=== PATIENT | male | born 1990 | race Caucasian/White ===

== ENCOUNTER 2020-01-01 10:25 | Emergency (ER) | payer OTHER, SELFPAY ==
[2020-01-01 10:37] VITALS: BP 136/63; PULSE 55; RESP 16; TEMP 36.5; O2SAT 99
--- NOTE | 2020-01-01 10:46 | ED.URI ---
HPI - URI/Sore Throat General Chief Complaint: Upper Respiratory Infection Stated Complaint: dry cough fever weak Time Seen by Provider: 01/01/20 10:46 Source: patient and RN notes reviewed History of Present Illness HPI Narrative: Patient is a 29-year-old male that presents the urgent care with complaints of dry cough, fever, fatigue, wheezing. Patient states that it started Wednesday and he is also had a little bit of nausea. Also reports of a slight sore throat due to the dry cough. States that he has been using Robitussin, NyQuil, ibuprofen [id number]. Denies any recent travel or high risk area of coronavirus. No other acute complaints. No acute distress noted. Patient read the plan of care. Related Data Home Medications Medication Instructions Recorded Confirmed amlodipine 10 mg PO DAILY 01/01/20 01/01/20 metoprolol tartrate 50 mg PO Q12H 01/01/20 01/01/20 Allergies Allergy/AdvReac Type Severity Reaction Status Date / Time No Known Allergies Allergy Verified 01/01/20 10:57 Review of Systems Review of Systems: Narrative: CONSTITUTIONAL: Reports a fever and fatigue EYES: Denies visual changes, redness, or discharge. ENT: Reports of postnasal drainage and sore throat CARDIOVASCULAR: Denies chest pain, palpitations, or edema. RESPIRATORY: Reports of dry cough with slight wheezing when lying down, without dyspnea GASTROINTESTINAL: Denies abdominal pain, nausea, vomiting, or diarrhea. GENITOURINARY: Denies dysuria or hematuria. SKIN: Denies rash or itching. MUSCULOSKELETAL: Denies back pain, joint pain, or myalgia. NEUROLOGIC: Denies headache, numbness, or weakness. All other systems reviewed are negative, except as documented in HPI. PMFSH Comments At the time of my signature, I reviewed and agree with the nursing past medical, surgical, social, and family history. There is no relevant family history pertinent to the patient complaint. Exam Narrative: Exam Narrative: GENERAL: This is a well-nourished, well-developed patient, in no apparent distress. HEAD: normocephalic, atraumatic. EYES: PERRL. Sclera clear/white. Vision is grossly intact. EARS: External ears normal, auditory canals clear and without drainage, TMs normal without perforation. Hearing grossly intact. NOSE: External nose normal with no obvious nasal discharge, nares without redness, no rhinorrhea. THROAT: Mucous membranes moist, moderate erythema noted posterior oropharynx with moderate postnasal drainage. NECK: Neck supple, non-tender without lymphadenopathy CARDIOVASCULAR: Regular rate and rhythm without murmurs, gallops, or rubs. RESPIRATORY: Clear to auscultation. Breath sounds equal bilaterally. No wheezes, rales, or rhonchi. SKIN: warm, intact with no suspicious lesions or rash, good texture and turgor. NEURO: awake, alert, and oriented to person, place and time. There were no obvious focal neurologic abnormalities. EXTREMITIES: No clubbing, cyanosis, or edema. Course Vital Signs Vital signs: Vital Signs Temperature 97.7 F 01/01/20 10:37 Pulse Rate 55 L 01/01/20 10:37 Respiratory Rate 16 01/01/20 10:37 Blood Pressure 136/63 01/01/20 10:37 Pulse Oximetry 99 01/01/20 10:37 Temperature 97.7 F 01/01/20 10:37 Pulse Rate 55 L 01/01/20 10:37 Respiratory Rate 16 01/01/20 10:37 Blood Pressure 136/63 01/01/20 10:37 Pulse Oximetry 99 01/01/20 10:37 Reviewed MDM - URI/Sore Throat MDM Narrative Medical decision making narrative: Reviewed lab results with the patient. He is aware that strep swab was negative. Educated him on culture and we will call within 72 hours if culture is positive and antibiotics are necessary. Advised the patient to use Tylenol/ibuprofen as needed for fever or body aches. Use Claritin and Flonase [id number] as directed. Use humidifier at night. Increase fluids and rest. Follow-up with PCP within 2 to 5 days or for worsening symptoms or failure to improve. Differential Diagnos
== END 2020-01-01 11:00 | disposition home or self-care (01) ==
PROVIDERS: Emergency Provider Nurse Practitioner Family
DX: J06.9 Acute upper respiratory infection, unspecified (principal); I10 Essential (primary) hypertension
CPT/HCPCS: 87081; 87880; 99203; G0463

== ENCOUNTER 2023-10-22 08:32 | Emergency (ER) | payer OTHER, MEDICAID, SELFPAY ==
[2023-10-22 08:40] VITALS: BP 130/83; PULSE 73; RESP 16; TEMP 37.1; O2SAT 99
--- NOTE | 2023-10-22 09:39 | ED.EAR ---
HPI - Ear Problem General Chief complaint: Ear Stated complaint: right ear Time Seen by Provider: 10/22/23 09:30 Source: patient, RN notes reviewed and old records reviewed Mode of arrival: ambulatory Limitations: no limitations History of Present Illness HPI Narrative: 33-year-old male who presents to [facility] with complaints of right ear pain which continues to throb despite being placed on oral antibiotic and steroids on Wednesday at ER visit. Patient reports that he was tested for strep,Covid and RSV at the ED with all tests negative. patient reports that he has been taking Ibuprofen for his pain. Patient has not taken any OTC decongestants or any antihistamines.Patient reports that he continues to have some nasal congestion and drainage and some irritation to his throat. MD Complaint: ear pain Location: right ear Duration: constant Severity: moderate Discharge from ear: Reports no Treatment prior to arrival: other (antibiotic and steroids) Related Data Home Medications Medication Instructions Recorded Confirmed amlodipine 10 mg tablet 10 mg PO DAILY 01/01/20 01/01/20 metoprolol tartrate 50 mg tablet 50 mg PO Q12H 01/01/20 01/01/20 penicillin V potassium 500 mg mg 10/22/23 tablet prednisone 50 mg tablet mg 10/22/23 Allergies Allergy/AdvReac Type Severity Reaction Status Date / Time No Known Allergies Allergy Verified 01/01/20 10:57 Review of Systems Review of Systems: CONSTITUTIONAL: Denies malaise, chills, sweats, or fever. EYES: Denies visual changes, redness, or discharge. ENT: Reports rhinorrhea, congestion, no sinus pain, right otalgia and positive for sore throat. CARDIOVASCULAR: Denies chest pain, palpitations, or edema. RESPIRATORY: Reports dry cough.? Denies dyspnea. GASTROINTESTINAL: Denies abdominal pain, nausea, vomiting, diarrhea SKIN: Denies rash or itching. MUSCULOSKELETAL: Denies myalgia. NEUROLOGIC: Denies headache. All systems reviewed & are unremarkable except as noted in HPI and below PMFSH Past Medical History Medical History (Updated 10/22/23 @ 09:58 by Nelly Beckford NP) Hypertension Surgical History Surgical History (Updated 10/22/23 @ 09:53 by Nelly Beckford NP) No history of previous surgery Social History Social History (Updated 10/22/23 @ 09:54 by Nelly Beckford NP) Smoking status: Never smoker Alcohol intake: never Substance use: never Gender identity (if verbalized by the patient): Male Comments At time of signature, agree with nursing past medical, surgical, social and family history. There is no relevant family history pertinent to the presenting complaint Exam Narrative: GENERAL: Well-appearing, well-nourished,obese, and in no acute distress. HEAD: Normocephalic EYES: PERRLA, conjunctivae clear ENT: Nares clear, turbinates edematous and erythematous, clear discharge. Mucous membranes moist. Right TM red and bulging with irritation of ear canal no drainage, Left TM pearly carvajal with dull light reflex bilaterally;right tragal tenderness. Oropharynx erythematous without lesions. Tonsils red enlarged and without exudate, no drooling, no hoarseness, no trismus, uvula midline.post nasal drainage NECK: Supple. No lymphadenopathy CHEST: Clear to auscultation, breath sounds equal. No wheezing, rhonchi, rales, or stridor. No respiratory distress, speaks in full sentences.occasional dry cough SAO2 99% on room air HEART: Regular rate and rhythm. No murmur heard. SKIN: Warm, dry, no rash. NEURO: Alert and oriented x3. PSYCH: Normal mood and affect Course Course Emergency Course: Patient is aware of diagnosis, understands and agrees to treatment plan.? Anticipatory guidance given.? Patient agrees to follow-up as directed and is aware of reasons to seek care at the emergency department. Portions of this record may have been created with voice recognition software Level of Care: [facility] Visit Vital
== END 2023-10-22 10:04 | disposition home or self-care (01) ==
PROVIDERS: Emergency Provider Registered Nurse; PCP Internal Medicine
DX: H60.501 Unspecified acute noninfective otitis externa, right ear (principal); I10 Essential (primary) hypertension; Z79.899 Other long term (current) drug therapy
CPT/HCPCS: 99203; G0463

== ENCOUNTER 2024-04-11 01:49 | Day surgery (SDC) | payer OTHER, SELFPAY ==
[2024-04-04 15:17] VITALS: BMI 46.3
--- NOTE | 2024-04-04 15:36 | PC.NURSE ---
Report to the Outpatient Waiting Room, entrance under the green pavilion located off [facility], at time _0945 AM on date _04/11/24 . Planned Procedure Time: __1145AM . Time changes happen often and if your time is changed the preop area will call you the afternoon before. - You and your visitor will be asked to self-screen and do not enter if you have any COVID symptoms. - A mask is optional within the hospital at this time. Patients may have clear liquids (water, carbonated beverages, clear teas, apple juice) until 3 hours prior to surgery (8:45AM) with a maximum of 20 ounces. - No food from midnight until time of surgery Take the following medications with a SIP of water the morning of surgery: ___AMLODIPINE AND METOPROLOL DO NOT STOP ANY OF YOUR OTHER PRESCRIPTION MEDICATIONS PRIOR TO SURGERY ?EXCEPT THE FOLLOWING Medications to discontinue per physician N/A Date to take last dose___N/A Please no make-up, nail czech, hairspray, perfume, deodorant, or body powder the day of surgery. No jewelry (including any body piercings) or valuables the day of surgery, leave them at home. Please take a shower or bath the night before, or the morning of, surgery with an antibacterial soap. Wear comfortable, loose fitting clothing. - Jewelry must be removed prior to entering the operating room. Rings and piercings that are not removed may be cut off. - The hospital will not accept responsibility for valuables. - Please leave all valuables, including medications, at home the day of surgery. If you are going home after surgery, a licensed driver recruiter must drive you home. - NO public transportation without another adult if you receive anesthesia. - We recommend that an adult stay with you for 24 hours following discharge. - We also recommend that you do not drive, make important decision, drink alcoholic beverages, or take any drugs that were not prescribed by your health care provider for at least 24 hours after your discharge time. Follow any additional instructions given to you from your surgeon. If you or anyone in your household have experienced Covid symptoms in the past week, please notify your surgeon or the nurse liaison at the phone number below for possible testing. Telephone instructions given to ___KYLE and asked if any additional questions and then verbalized understanding. Patient advised to call surgeon office or pre surgery nurse liaison [phone] if any additional questions.
--- NOTE | 2024-04-10 17:34 | PM.IMHP ---
H&P: HPI History of Present Illness Date/Time: 04/10/24 17:34 Chief Complaint: snoring adenoid hypertrophy chronic tonsillitis recurrent tonsillitis sleep disordered breathing tonsillar hypertrophy Narrative: planned procedure Review of Systems Review of Systems: All systems reviewed & are unremarkable except as noted in HPI and below [facility] Past Medical History Medical History (Updated 02/23/24 @ 09:02 by Sulaiman Garcia MD) Arthritis Hypertension Surgical History Surgical History (Updated 10/22/23 @ 09:53 by Nelly Beckford NP) No history of previous surgery Family History Family History (Updated 02/23/24 @ 08:34 by Paty De Jesus) Father Diabetes mellitus Mother Diabetes mellitus Heart disease Hypertension Social History Social History (Updated 02/23/24 @ 08:36 by Paty De Jesus) Social History: Caffeine-none Smoking packs per day: 0.25 Smoking cigarettes per day: 5.0 Years smoked: 15 Smoking pack-years: 3.75 Smoking status: Former smoker Tobacco type: cigarettes Smoking end date: 10/18/22 Alcohol intake: never Substance use: never Substance use type: does not use Do You Feel Safe in your Home?: Yes Lack of Transportation: No Lack of Food: Never True Current Housing: I Have Housing Concerned About Future Housing: No Difficulty Paying Gas/Electric Bills: No Difficulty Paying for Meds: No Currently Unemployed: No Education: High School Diploma/GED Difficulty w/ Childcare or Family Care: No Living arrangements: with family Occupation/Education: occupation 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 Gender identity (if verbalized by the patient): Male Spiritual care concerns: No Agree to blood products: Yes Meds Home Medications and Allergies Home Medications Medication Instructions Recorded Confirmed Type amlodipine 10 mg tablet 10 mg PO DAILY 01/01/20 04/04/24 History metoprolol tartrate 50 mg tablet 50 mg PO Q12H 01/01/20 04/04/24 History Allergies Allergy/AdvReac Type Severity Reaction Status Date / Time No Known Allergies Allergy Verified 04/04/24 15:40 Exam Narrative: large tonsils large adenoids Assessment and Plan Assessment and plan (1) Recurrent tonsillitis: Code(s): J03.91 - Acute recurrent tonsillitis, unspecified Status: Acute Assessment and Plan: Plan or tonsillectomy adenoidectomy risks discussed bleeding infection damage to surrounding structures change in taste or swallow which could be permanent need for further procedures postoperative bleeding 3-5% chance. Need for time off work time off school inherent risk of narcotic use. Failure to resolve symptoms if not due to tonsils and/or adenoids. Damage to any structure of the clavicle by myself damage to any structure in the induction and maintenance of anesthesia Including vocal cord paralysis. Patient voiced understanding of these risks and agreed (2) Adenoid hypertrophy: Code(s): J35.2 - Hypertrophy of adenoids Status: Acute (3) Snoring: Code(s): R06.83 - Snoring Status: Acute (4) Sleep-disordered breathing: Code(s): G47.30 - Sleep apnea, unspecified Status: Acute
[2024-04-11] VITALS (16 sets, daily range): BP systolic 111–147; BP diastolic 49–92; PULSE 58–78; RESP 8–16; TEMP 36.1–36.3; O2SAT 92–100
--- NOTE | 2024-04-11 06:56 | ECG_ITS ---
Test Date: 2024-04-11 07:27:00 Measurements Intervals [place] Rate: 68 P: 18 NM: 183 QRS: 7 QRSD: 96 T: 24 QT: 360 QTc: 384 Interpretive Statements SINUS RHYTHM No previous ECG available for comparison Electronically Signed On 04-11-2024 13:35:44 CDT by James Zhao M.D.
--- NOTE | 2024-04-11 07:18 | WPDHPUPDATE1 ---
History and Physical Update Update Date/Time: 04/11/24 07:18 History and Physical has been reviewed, including an updated exam of the patient. There are NO changes in the patient's condition. Risks, benefits, and alternatives have been discussed and questions answered. Patient agrees to proceed with procedure.
[2024-04-11] MEDS: LACTATED RINGERS 1,000 ML 30 ML IV CONT ×2 (07:35→10:02)
[2024-04-11] MEDS: ACETAMINOPHEN 500 MG TABLET 1000 MG PO (07:35)
--- NOTE | 2024-04-11 07:35 | P.PNAN_ITS ---
Anes - Initial Pre Proc Eval Procedure: Operation Date: 04/11/24 08:45 Proposed Procedures p Tonsillectomy And Adenoidectomy - Sulaiman Garcia MD Date/Time: 04/11/24 07:35 Surgeon: Sulaiman Garcia MD Pre Op Diagnosis: recurrent tonsillitis, adenoid hypertrophy Patient Data Age: 33 Gender: M Height: 1.93 m Weight: 172.5 kg Allergies Allergy/AdvReac Type Severity Reaction Status Date / Time No Known Allergies Allergy Verified 04/04/24 15:40 Home Medications Medication Instructions Recorded Confirmed Type amlodipine 10 mg tablet 10 mg PO DAILY 01/01/20 04/04/24 History metoprolol tartrate 50 mg tablet 50 mg PO Q12H 01/01/20 04/04/24 History Patient hx anesthesia problems: none Family hx anesthesia problems: none Results Review: All pre-operative results and documents have been reviewed as part of the pre- operative evaluation. [facility] Past Medical History Medical History (Updated 02/23/24 @ 09:02 by Sulaiman Garcia MD) Arthritis Hypertension Surgical History Surgical History No history of previous surgery Family History Family History Father Diabetes mellitus Mother Diabetes mellitus Heart disease Hypertension Social History Social History Social History: Caffeine-none Smoking packs per day: 0.25 Smoking cigarettes per day: 5.0 Years smoked: 15 Smoking pack-years: 3.75 Smoking status: Former smoker Tobacco type: cigarettes Smoking end date: 10/18/22 Alcohol intake: never Substance use: never Substance use type: does not use Do You Feel Safe in your Home?: Yes Lack of Transportation: No Lack of Food: Never True Current Housing: I Have Housing Concerned About Future Housing: No Difficulty Paying Gas/Electric Bills: No Difficulty Paying for Meds: No Currently Unemployed: No Education: High School Diploma/GED Difficulty w/ Childcare or Family Care: No Living arrangements: with family Occupation/Education: occupation 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 Gender identity (if verbalized by the patient): Male Spiritual care concerns: No Agree to blood products: Yes Anes - Eval Final PreProcedure Day of Procedure 04/11/24 07:35 Patient weight: morbidly obese Heart: regular rate and rhythm Lungs: clear to auscultation Airway: Mallampati scale class III and special considerations poor opening Neurological: alert and oriented Last oral intake: >/= 8 hours ASA classification: III Emergent: no Anesthetic plan: proceed Anesthesia type and monitoring: general ETT and standard monitoring Results Review: All pre-operative results and documents have been reviewed as part of the pre- operative evaluation. Informed Consent: The patient's anesthetic plan and its attendant risks and benefits were discussed with the patient/family/POA. Questions were solicited and answers provided to the satisfaction of the patient/family/POA.
--- NOTE | 2024-04-11 10:15 | P.OP_ITS ---
Procedure Note - Detailed Date of Procedure 04/11/24 Pre-op Diagnosis recurrent tonsillitis, adenoid hypertrophy Post-op Diagnosis Same Procedure Performed Tonsillectomy adenoidectomy Surgeon Sulaiman Garcia MD Anesthesia General Indications see above Findings incredibly large vascularized tonsils adenoids overall not big but they did there were fronds about 2 to 3+ right at the posterior cord Description of Procedure patient identified consent verified preop. Patient brought operating. Time- out performed. General anesthesia induced endotracheal tube secured. Patient prepped draped position procedure confirmed 2nd time-out performed. Tonsils viewed incredibly large. They were removed bilaterally in the extracapsular plane using Bovie electrocautery at a setting of 8 and 10. Any bleeding was controlled with bipolar electric electrocautery setting of 05/27/2012 and 15 and suction Bovie electrocautery at a setting of 10 12 in 15. The tonsil bed the muscular layer was incredibly vascular. Special on the left side there is a large vessel that took me about 10-15 minutes to completely controlled. In- between tonsils McIvor mouth gag was lowered reopened allow blood flow return to the tongue. After the tonsils were out the McIvor mouth gag was lowered for 30 seconds reopened reveal no further bleeding. Red rubber catheters were then placed transnasally suspending the soft palate anteriorly. Adenoid pad viewed with a mirror it was overall small/ nonexistent however at the posterior choana there were large fronds 2 to 3+ these removed no bleeding. No damage to nikole septum or palate. McIvor mouth gag and red rubber catheters removed. Overall the patient tolerated the procedure very well blood loss high for tonsillectomy about 15 cc. No immediate complications. Care the patient given Anesthesiology. I performed all dictated portions of the procedure. Of note tonsillar asymmetry was noted in clinic, however the tonsils appeared to be symmetric once they work sized. Estimated Blood Loss 15 Drains No Packing No Pathology Yes Complications No immediate complications Condition Stable Disposition PACU [facility] Billing Surgery - Charge Forward: Surgery Billing
[2024-04-11] MEDS: fentaNYL CITRATE INJ (*CRX) 100 MCG/2 ML VIAL 25 MCG IV PUSH ×2 (10:44→10:47)
[2024-04-11] MEDS: ONDANSETRON INJ 4 MG/2 ML VIAL IV PUSH (11:22)
[2024-04-11] MEDS: oxyCODONE HCL (*CRX) 5 MG TAB IR PO (13:12)
== END 2024-04-11 14:45 | disposition home or self-care (01) ==
PROVIDERS: PCP Internal Medicine; Visit Provider Otolaryngology
PROC: (CPT 42821; principal; 2024-04-11 08:45)
DX: J03.91 Acute recurrent tonsillitis, unspecified (principal); J35.2 Hypertrophy of adenoids; R06.83 Snoring; G47.30 Sleep apnea, unspecified; Z87.891 Personal history of nicotine dependence; I10 Essential (primary) hypertension
CPT/HCPCS: 42821; 88304; 93005; A9270; J0330; J1100; J2250; J2405; J2704; J3010; J7120

== ENCOUNTER 2024-04-19 00:11 | Day surgery (SDC) | payer SELFPAY ==
[2024-04-19] VITALS (9 sets, daily range): BP systolic 113–132; BP diastolic 70–101; PULSE 84–123; RESP 12–18; TEMP 36.3–36.7; O2SAT 94–100
--- NOTE | 2024-04-19 00:33 | ED.DENTAL ---
HPI - Dental/Oral General Chief complaint: Dental/Oral Stated complaint: tonsil bleeding post tonsilectomy Time Seen by Provider: 04/19/24 00:14 Source: patient Mode of arrival: ambulatory Limitations: no limitations History of Present Illness HPI Narrative: This is a 33 year old male that presents to the ER for post-tonsillectomy bleeding. Patient is about 1 week post-op from T&A with Dr. Garcia. Reports he woke up tonight with a mouth full of blood. Related Data Home Medications Medication Instructions Recorded Confirmed amlodipine 10 mg tablet 10 mg PO DAILY 01/01/20 04/11/24 metoprolol tartrate 50 mg tablet 50 mg PO Q12H 01/01/20 04/11/24 Allergies Allergy/AdvReac Type Severity Reaction Status Date / Time No Known Allergies Allergy Verified 04/19/24 00:22 Review of Systems Review of Systems: CONSTITUTIONAL: Denies fever ENT: Reports sore throat All systems reviewed & are unremarkable except as noted in HPI and below PMFSH Past Medical History Medical History (Updated 04/19/24 @ 00:36 by Coral Burr PA-C) Arthritis Hypertension Surgical History Surgical History No history of previous surgery Family History Family History Father Diabetes mellitus Mother Diabetes mellitus Heart disease Hypertension Social History Social History Social History: Caffeine-none Smoking packs per day: 0.25 Smoking cigarettes per day: 5.0 Years smoked: 15 Smoking pack-years: 3.75 Smoking status: Former smoker Tobacco type: cigarettes Smoking end date: 10/18/22 Alcohol intake: never Substance use: never Substance use type: does not use Do You Feel Safe in your Home?: Yes Lack of Transportation: No Lack of Food: Never True Current Housing: I Have Housing Concerned About Future Housing: No Difficulty Paying Gas/Electric Bills: No Difficulty Paying for Meds: No Currently Unemployed: No Education: High School Diploma/GED Difficulty w/ Childcare or Family Care: No Living arrangements: with family Occupation/Education: occupation 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 HEAD: Normocephalic, atraumatic. EYES: EOMI. ENT: Nares clear, no rhinorrhea or epistaxis. Mucous membranes moist. Oropharynx with large clot on the right tonsil bed CHEST: No respiratory distress. HEART: Regular rate EXTREMITIES: Normal range of motion. No edema. SKIN: Warm, dry, no rash. NEURO: No focal deficits. Alert and oriented x3. PSYCH: Normal mood and affect Course Course Emergency Course: Dr. Garcia at bedside. Patient will be taken to OR for further management Vital Signs Vital signs: Vital Signs Temperature 98.1 F 04/19/24 00:14 Pulse Rate 123 H 04/19/24 00:14 Respiratory Rate 18 04/19/24 00:14 Blood Pressure 132/91 H 04/19/24 00:14 Pulse Oximetry 96 04/19/24 00:14 Oxygen Delivery Room Air 04/19/24 00:14 Temperature 98.1 F 04/19/24 00:14 Pulse Rate 123 H 04/19/24 00:14 Respiratory Rate 18 04/19/24 00:14 Blood Pressure 132/91 H 04/19/24 00:14 Pulse Oximetry 96 04/19/24 00:14 Oxygen Delivery Room Air 04/19/24 00:14 MDM - Dental/Oral MDM Narrative Medical decision making narrative: Patient presents to the ER for post-tonsillectomy bleeding. One week post op from T&A with Dr. Garcia. Dr. Garcia at bedside currently. Patient will be taken to OR for further management Differential Diagnosis Differential diagnosis: Likely other (post-tonsillectomy bleeding) Critical Care Time Critical Care Time Critical Care Time: No Discharge Plan Di
--- NOTE | 2024-04-19 00:41 | P.CONS_ITS ---
Assessment and Plan Assessment and plan (1) Post-tonsillectomy hemorrhage: Code(s): J95.830 - Postprocedural hemorrhage of a respiratory system organ or structure following a respiratory system procedure Status: Acute Assessment and Plan: plan OR control of post tonsillectomy hemorrhage. Risks discussed bleeding infection damage trach suctioning for the procedure prolonged pain all the exact same risks discussed during previous tonsillectomy. HPI Data of Consult Date/Time: 04/19/24 00:41 Primary Care Provider: Claudy Sanchez, Consult Narrative Narrative: Fili Varner is a 33 year old male Status post T&A 7 days ago bleeding Review of Systems Review of Systems: All systems reviewed & are unremarkable except as noted in HPI and below PMFSH Past Medical History Medical History (Updated 04/19/24 @ 00:36 by Coral Burr PA-C) Arthritis Hypertension Surgical History Surgical History No history of previous surgery Family History Family History Father Diabetes mellitus Mother Diabetes mellitus Heart disease Hypertension Social History Social History Social History: Caffeine-none Smoking packs per day: 0.25 Smoking cigarettes per day: 5.0 Years smoked: 15 Smoking pack-years: 3.75 Smoking status: Former smoker Tobacco type: cigarettes Smoking end date: 10/18/22 Alcohol intake: never Substance use: never Substance use type: does not use Do You Feel Safe in your Home?: Yes Lack of Transportation: No Lack of Food: Never True Current Housing: I Have Housing Concerned About Future Housing: No Difficulty Paying Gas/Electric Bills: No Difficulty Paying for Meds: No Currently Unemployed: No Education: High School Diploma/GED Difficulty w/ Childcare or Family Care: No Living arrangements: with family Occupation/Education: occupation 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 Gender identity (if verbalized by the patient): Male Spiritual care concerns: No Agree to blood products: Yes Meds Home Medications and Allergies Home Medications Medication Instructions Recorded Confirmed Type amlodipine 10 mg tablet 10 mg PO DAILY 01/01/20 04/11/24 History metoprolol tartrate 50 mg tablet 50 mg PO Q12H 01/01/20 04/11/24 History oxycodone 5 mg tablet 5 mg PO .q6-q8h PRN pain #30 tabs 04/11/24 Rx Allergies Allergy/AdvReac Type Severity Reaction Status Date / Time No Known Allergies Allergy Verified 04/19/24 00:22 Vital Signs Vital Signs - 24 hr 04/19/24 00:14 Temperature 36.7 C Pulse Rate 123 H Respiratory Rate 18 Blood Pressure 132/91 H Pulse Oximetry 96 Oxygen Delivery Room Air Exam Narrative: right clot bleeding when suctioned out
--- NOTE | 2024-04-19 00:44 | P.HP_ITS ---
H&P: HPI History of Present Illness Date/Time: 04/19/24 00:44 Chief Complaint: Post tonsillectomy hemorrhage Narrative: urgent procedure Review of Systems Review of Systems: All systems reviewed & are unremarkable except as noted in HPI and below [facility] Past Medical History Medical History (Updated 04/19/24 @ 00:36 by Coral Burr PA-C) Arthritis Hypertension Surgical History Surgical History No history of previous surgery Family History Family History Father Diabetes mellitus Mother Diabetes mellitus Heart disease Hypertension Social History Social History Social History: Caffeine-none Smoking packs per day: 0.25 Smoking cigarettes per day: 5.0 Years smoked: 15 Smoking pack-years: 3.75 Smoking status: Former smoker Tobacco type: cigarettes Smoking end date: 10/18/22 Alcohol intake: never Substance use: never Substance use type: does not use Do You Feel Safe in your Home?: Yes Lack of Transportation: No Lack of Food: Never True Current Housing: I Have Housing Concerned About Future Housing: No Difficulty Paying Gas/Electric Bills: No Difficulty Paying for Meds: No Currently Unemployed: No Education: High School Diploma/GED Difficulty w/ Childcare or Family Care: No Living arrangements: with family Occupation/Education: occupation 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 Gender identity (if verbalized by the patient): Male Spiritual care concerns: No Agree to blood products: Yes Meds Home Medications and Allergies Home Medications Medication Instructions Recorded Confirmed Type amlodipine 10 mg tablet 10 mg PO DAILY 01/01/20 04/11/24 History metoprolol tartrate 50 mg tablet 50 mg PO Q12H 01/01/20 04/11/24 History oxycodone 5 mg tablet 5 mg PO .q6-q8h PRN pain #30 tabs 04/11/24 Rx Allergies Allergy/AdvReac Type Severity Reaction Status Date / Time No Known Allergies Allergy Verified 04/19/24 00:22 Vital Signs Vital Signs - 24 hr 04/19/24 00:14 Temperature 36.7 C Pulse Rate 123 H Respiratory Rate 18 Blood Pressure 132/91 H Pulse Oximetry 96 Oxygen Delivery Room Air Exam Narrative: right clot with bleeding Assessment and Plan Assessment and plan (1) Post-tonsillectomy hemorrhage: Code(s): J95.830 - Postprocedural hemorrhage of a respiratory system organ or structure following a respiratory system procedure Status: Acute Plan see consult plan OR
[2024-04-19 01:03] LABS: Basophils Absolute Auto 0.1 K/mm3 (0.0-0.1); Basophils Percent Auto 0.5 % (0.2-1.2); Eosinophils Absolute Auto 0.1 K/mm3 (0-0.3); Eosinophils Percent Auto 1.1 % (0-4.4); Hemoglobin 14.7 g/dL (14.0-18.0); Immature Granulocyte Absolute 0.01 K/mm3 (0.00-0.031); Immature Granulocyte Percent A 0.1 % (0-0.5); Lymphocytes Absolute Auto 3.01 K/mm3 (0.9-3.2); Mean Corpuscular HGB Conc 34.2 g/dl (32-36); Mean Corpuscular Hemoglobin 28.7 pg (26-34); Mean Corpuscular Volume 83.8 fl (80-100); Mean Platelet Volume 10.3 fl (7.4-10.4); Monocytes Absolute Auto 0.9 K/mm3 (0.1-0.6); Monocytes Percent Auto 10.3 % (2.6-8.5); Platelet Count Result 274 k/mm3 (150-375); Red Blood Count 5.13 M/mm3 (4.6-6.20); Red Cell Distribution Width 12.8 % (11.5-14.5); White Blood Count 9.1 K/mm3 (4.5-10.0)
--- NOTE | 2024-04-19 01:35 | WPDANESEPP ---
Anes - Eval Pre Procedure Procedure: Operation Date: 04/19/24 01:30 Proposed Procedures p Post Op Tonsil Bleed - Sulaiman Garcia MD Date/Time: 04/19/24 01:35 Surgeon: caren Preop Diagnosis: post tonsillar hemorrhage Pre Op Diagnosis: tonsil bleeding post tonsilectomy Patient Data Age: 33 Gender: M Height: 1.93 m Weight: 172 kg Last Vital Signs Temp 36.7 C 04/19/24 00:14 Pulse 123 H 04/19/24 00:14 Resp 18 04/19/24 00:14 BP 132/91 H 04/19/24 00:14 Pulse Ox 96 04/19/24 00:14 O2 Del Method Room Air 04/19/24 00:14 Allergies Allergy/AdvReac Type Severity Reaction Status Date / Time No Known Allergies Allergy Verified 04/19/24 00:22 Home Medications Medication Instructions Recorded Confirmed Type amlodipine 10 mg tablet 10 mg PO DAILY 01/01/20 04/11/24 History metoprolol tartrate 50 mg tablet 50 mg PO Q12H 01/01/20 04/11/24 History oxycodone 5 mg tablet 5 mg PO .q6-q8h PRN pain #30 tabs 04/11/24 Rx Laboratory Tests 04/19/24 00:58 WBC 9.1 K/mm3 (4.5-10.0) RBC 5.13 M/mm3 (4.6-6.20) Hgb 14.7 g/dL (14.0-18.0) Hct 43.0 % (42.0-52.0) MCV 83.8 fl (80-100) MCH 28.7 pg (26-34) MCHC 34.2 g/dl (32-36) RDW 12.8 % (11.5-14.5) Plt Count 274 k/mm3 (150-375) MPV 10.3 fl (7.4-10.4) Immature Gran % (Auto) 0.1 % (0-0.5) Neut % (Auto) 55.0 % (45.5-73.1) Lymph % (Auto) 33.0 % (18.3-44.2) [place] % (Auto) 10.3 H % (2.6-8.5) Eos % (Auto) 1.1 % (0-4.4) Baso % (Auto) 0.5 % (0.2-1.2) Lymph # (Auto) 3.01 K/mm3 (0.9-3.2) [place] # (Auto) 0.9 H K/mm3 (0.1-0.6) Eos # (Auto) 0.1 K/mm3 (0-0.3) Baso # (Auto) 0.1 K/mm3 (0.0-0.1) Abs Immat Gran (auto) 0.01 K/mm3 (0.00-0.031) Absolute Neuts (auto) 5.0 K/mm3 (1.3-6.7) Absolute Nucleated RBC 0.000 K/mm3 (0.0-0.012) Nucleated RBC % 0.0 % (0.0-0.2) Patient hx anesthesia problems: none Family hx anesthesia problems: none Results Review: All pre-operative results and documents have been reviewed as part of the pre-operative evaluation. [facility] Past Medical History Medical History (Updated 04/19/24 @ 00:36 by Coral Burr PA-C) Arthritis Hypertension Surgical History Surgical History No history of previous surgery Family History Family History Father Diabetes mellitus Mother Diabetes mellitus Heart disease Hypertension Social History Social History Social History: Caffeine-none Smoking packs per day: 0.25 Smoking cigarettes per day: 5.0 Years smoked: 15 Smoking pack-years: 3.75 Smoking status: Former smoker Tobacco type: cigarettes Smoking end date: 10/18/22 Alcohol intake: never Substance use: never Substance use type: does not use Do You Feel Safe in your Home?: Yes Lack of Transportation: No Lack of Food: Never True Current Housing: I Have Housing Concerned About Future Housing: No Difficulty Paying Gas/Electric Bills: No Difficulty Paying for Meds: No Currently Unemployed: No Education: High School Diploma/GED Difficulty w/ Childcare or Family Care: No Living arrangements: with family Occupation/Education: occupation 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
--- NOTE | 2024-04-19 01:41 | WPDANESEPPF ---
Anes - Initial Pre Proc Eval Procedure: Operation Date: 04/19/24 01:30 Proposed Procedures p Post Op Tonsil Bleed - Sulaiman Garcia MD Date/Time: 04/19/24 01:41 Surgeon: Sulaiman Garcia MD Pre Op Diagnosis: tonsil bleeding post tonsilectomy Patient Data Age: 33 Gender: M Height: 1.93 m Weight: 172 kg Last Vital Signs Temp 98.1 F 04/19/24 00:14 Pulse 123 H 04/19/24 00:14 Resp 18 04/19/24 00:14 BP 132/91 H 04/19/24 00:14 Pulse Ox 96 04/19/24 00:14 O2 Del Method Room Air 04/19/24 00:14 Allergies Allergy/AdvReac Type Severity Reaction Status Date / Time No Known Allergies Allergy Verified 04/19/24 00:22 Home Medications Medication Instructions Recorded Confirmed Type amlodipine 10 mg tablet 10 mg PO DAILY 01/01/20 04/11/24 History metoprolol tartrate 50 mg tablet 50 mg PO Q12H 01/01/20 04/11/24 History oxycodone 5 mg tablet 5 mg PO .q6-q8h PRN pain #30 tabs 04/11/24 Rx Laboratory Tests 04/19/24 00:58 WBC 9.1 K/mm3 (4.5-10.0) RBC 5.13 M/mm3 (4.6-6.20) Hgb 14.7 g/dL (14.0-18.0) Hct 43.0 % (42.0-52.0) MCV 83.8 fl (80-100) MCH 28.7 pg (26-34) MCHC 34.2 g/dl (32-36) RDW 12.8 % (11.5-14.5) Plt Count 274 k/mm3 (150-375) MPV 10.3 fl (7.4-10.4) Immature Gran % (Auto) 0.1 % (0-0.5) Neut % (Auto) 55.0 % (45.5-73.1) Lymph % (Auto) 33.0 % (18.3-44.2) [place] % (Auto) 10.3 H % (2.6-8.5) Eos % (Auto) 1.1 % (0-4.4) Baso % (Auto) 0.5 % (0.2-1.2) Lymph # (Auto) 3.01 K/mm3 (0.9-3.2) [place] # (Auto) 0.9 H K/mm3 (0.1-0.6) Eos # (Auto) 0.1 K/mm3 (0-0.3) Baso # (Auto) 0.1 K/mm3 (0.0-0.1) Abs Immat Gran (auto) 0.01 K/mm3 (0.00-0.031) Absolute Neuts (auto) 5.0 K/mm3 (1.3-6.7) Absolute Nucleated RBC 0.000 K/mm3 (0.0-0.012) Nucleated RBC % 0.0 % (0.0-0.2) Patient hx anesthesia problems: none Family hx anesthesia problems: none Results Review: All pre-operative results and documents have been reviewed as part of the pre-operative evaluation. [facility] Past Medical History Medical History Arthritis Hypertension Surgical History Surgical History No history of previous surgery Family History Family History Father Diabetes mellitus Mother Diabetes mellitus Heart disease Hypertension Social History Social History Social History: Caffeine-none Smoking packs per day: 0.25 Smoking cigarettes per day: 5.0 Years smoked: 15 Smoking pack-years: 3.75 Smoking status: Former smoker Tobacco type: cigarettes Smoking end date: 10/18/22 Alcohol intake: never Substance use: never Substance use type: does not use Do You Feel Safe in your Home?: Yes Lack of Transportation: No Lack of Food: Never True Current Housing: I Have Housing Concerned About Future Housing: No Difficulty Paying Gas/Electric Bills: No Difficulty Paying for Meds: No Currently Unemployed: No Education: High School Diploma/GED Difficulty w/ Childcare or Family Care: No Living arrangements: with family Occupation/Education: occupation 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
[2024-04-19] MEDS: LACTATED RINGERS 1,000 ML 30 ML IV CONT ×2 (01:51→03:14)
--- NOTE | 2024-04-19 03:08 | W.PM.PROC2 ---
Procedure Note - Detailed Date of Procedure 04/19/24 Pre-op Diagnosis tonsil bleeding post tonsilectomy Post-op Diagnosis Same Procedure Performed Right-sided post tonsillectomy hemorrhage Surgeon Sulaiman Garcia MD Anesthesia General Indications right-sided inferior based inferior lateral near the tongue base severe bleeding Findings see above Description of Procedure patient identified consent verified preop. Patient brought to the operating room. Time-out performed. General anesthesia induced endotracheal tube secured. Significant bleeding. McIvor mouthgag placed significant bleeding from the right tonsillar fossa. Clot suctioned out cotton ball utilized to take control of the bleeding artery. The artery looked to be based kind of running an inferior to superior direction on the lateral tonsillar fossa more near the tongue base. It took me quite a while about 20 minutes to control the bleeding using a combination of bipolar electrocautery and Bovie suction electrocautery setting of 15 and 20. At the end of the procedures no further bleeding I then roughed up the area quite a bit and tried recreate the bleeding nose not able to. Patient tolerated the procedure well McIvor mouth gag removed left side was also examined no bleeding. The stomach was suctioned out in total there was 200 cc of gastric content blood in the canister after the procedure. Also a blood loss 100 cc given that a large portion of it was gastric content. Patient tolerated the procedure very well no complications. I performed all dictated portions procedure patient taken to PACU. Estimated Blood Loss 100 Drains No Packing No Pathology None sent Complications No immediate complications Condition Stable Disposition PACU [facility] Billing Surgery - Charge Forward: Surgery Billing
[2024-04-19] MEDS: oxyCODONE (*CRX) 5 MG/5 ML ORAL SOLN IR PO (03:45)
== END 2024-04-19 04:26 | disposition home or self-care (01) ==
LOC: ANHED 00:39 → ANHSURGERY 00:41
PROVIDERS: Emergency Provider Physician Assistant; PCP Internal Medicine; Visit Provider Otolaryngology
PROC: (CPT 42960; principal; 2024-04-19 13:30)
DX: J95.830 Postprocedural hemorrhage of a respiratory system organ or structure following a respiratory system procedure (principal); Y83.8 Other surgical procedures as the cause of abnormal reaction of the patient, or of later complication, without mention of misadventure at the time of the procedure; I10 Essential (primary) hypertension; Z87.891 Personal history of nicotine dependence
CPT/HCPCS: 42960; 36415; 85025; 99285; A9270; J0330; J1100; J2250; J2405; J2704; J3010; J7120

== ENCOUNTER 2025-03-08 10:26 | Emergency (ER) | payer OTHER, SELFPAY ==
--- NOTE | ~2025-03-08 | XR_ITS ---
Left Hand Technique: PA, oblique, and lateral views were obtained. Clinical History: Injury Findings: No acute fracture or dislocation is seen. Osseous alignment is anatomic. Joint spaces are p reserved. Soft tissues are unremarkable. Impression: Unremarkable left hand. Reviewed, dictated and finalized at location M. Impression: Unremarkable left hand.
--- OUTSIDE RECORDS SUMMARY | 2025-03-08 10:32 | XMS_ITS | Clinical Summary ---
Author Organization [facility] Address [address] [place] [address] Care Team Providers Care Drafter Assistant Name Role Phone Kim Bryant NP Primary Care Provider [phone] Allergies No known active allergies Medications amLODIPine (NORVASC) 10 mg tablet Take 10 mg by mouth daily. Active metoprolol XL (TOPROL-XL) 25 mg 24 hr tablet Take 25 mg by mouth daily. Active traMADol (ULTRAM) 50 mg tablet Take 1 tablet (50 mg total) by mouth every 4 (four) hours as needed for pain. 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 Gender Identity Not on file Sexual Orientation Not on file Obstetrics History Last Filed Vital Signs Vital Sign Reading Time Taken Comments Blood Pressure 145/80 07/28/2021 6:19 PM CDT Pulse 57 07/28/2021 6:19 PM CDT Temperature 37.1 C (98.7 F) 07/28/2021 4:10 PM CDT Respiratory Rate 14 07/28/2021 6:19 PM CDT Oxygen Saturation 98% 07/28/2021 6:19 PM CDT Inhaled Oxygen Concentration - - Weight 145.2 kg (320 lb) 07/28/2021 4:10 PM CDT Height 188 cm (6' 2 ) 07/28/2021 4:10 PM CDT Body Mass Index 41.09 07/28/2021 4:10 PM CDT Plan of Treatment Not on file Insurance [employer]ET[employer] SIG [id number] [place]PA AETNA SIG [id number] Care Teams Drafter Assistant Relationship Specialty Start Date End Date Kim Bryant NP PCP - General 04/04/17
--- OUTSIDE RECORDS SUMMARY | 2025-03-08 10:32 | XMS_ITS | Clinical Summary ---
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
--- OUTSIDE RECORDS SUMMARY | 2025-03-08 10:32 | XMS_ITS | Referral Summary ---
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
--- OUTSIDE RECORDS SUMMARY | 2025-03-08 10:32 | XMS_ITS | Clinical Summary ---
Author Organization [facility] Address [address] [place] [address] Care Team Providers Care Supervisor Belt And Link Assembly Name Role Phone Kim Bryant Goldie INSTRUMENT TESTER-IMPORT CLERK Primary Care Provider Source Comments [facility],non-[facility] Affiliates and Associated Physician Practices is amultiple site organization consisting of ambulatory clinics and hospital sitesin [place], [place], [place] and [place]. This disclosure is being madepursuant to the Care Everywhere program and may not contain all information available regarding this patient. Last updated 18.[facility] [employer] Allergies Active Allergy Reactions Criticality Noted Date Comments other [Other] Anaphylaxis High Received name: Nkda Medications * Be aware that medications may not be up to date on this document. Alwaysverify current medications with the patient. amLODIPine (NORVASC) 10 MG tablet Take by mouth once daily 04/28/2018 Active metoprolol tartrate (LOPRESSOR) 50 MG tablet Take by mouth once daily 02/01/2019 Active lisinopril-hydro CHLOROthiazide (PRINZIDE; ZESTORETIC) 20-25 MG tablet Take by mouth as needed Active diclofenac sodium EC (VOLTAREN) 75 MG tablet Take by mouth as needed Active Active Problems Problem Noted Date Diagnosed Date Obesity, morbid, BMI 40.0-49.9 02/28/2019 Left hip pain 02/07/2019 Social History Tobacco Use Types Packs/Day Years Used Date Smoking Tobacco: Every Day Smokeless Tobacco: Never Alcohol Use Standard Drinks/Week Comments Yes 1 (1 standard drink = 0.6 oz pur e alcohol) once every three months Sex and Gender Information Value Date Recorded Sex Assigned at Not on file 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 Gender Identity Not on file Sexual Orientation Not on file Last Filed Vital Signs Vital Sign Reading Time Taken Comments Blood Pressure - - Pulse - - Temperature - - Respiratory Rate - - Oxygen Saturation - - Inhaled Oxygen Concentration - - Weight 154.7 kg (341 lb) 02/07/2019 4:00 PM CDT Height 193 cm (6' 4 ) 02/07/2019 4:00 PM CDT Body Mass Index 41.51 02/07/2019 4:00 PM CDT Plan of Treatment Health Maintenance Due Date Last Done Comments HIV SCREENING 2007 HEPATITIS C SCREENING 06/16/2010 DTAP/TDAP/TD VACCINES (1 - Tdap) 2011 HEPATITIS B VACCINE (1 of 3 - 19+ 3-dose series) 2011 PNEUMOCOCCAL VACCINE (1 of 2 - PCV) 2011 COVID-19 VACCINE (1 - 2023-2 5 season) 2024 DEPRESSION SCREENING 10/18/2024 INFLUENZA VACCINE (Season Ended) 2025 ZOSTER VACCINE (1 of 2) 2042 HIB VACCINE Aged Out No longer eligi ble based on patient's age to complete this topic HPV VACCINE Aged Out No longer eligi ble based on patient's age to complete this topic MENINGOCOCCAL (Group B) VACC INE SHARED DECISION-MAKING Aged Out No longer eligibl e based on patient's age to complete this topic MENINGOCOCCAL GROUPS A/C/Y/W VACCINE Aged Out No longer eligible b ased on patient's age to complete this topic Insurance [facility] * Guarantor: EZE VARNER Account Type Relation to Patient Date of Phone Billing Address Personal/Family [address] [place] [phone] [employer] SELF PAY NO INSURANCE Member Subscriber Plan / Payer (Ef fective for All Dates) Name:Eze Varner Member ID:Not on file Relation to Subscriber:Not on file Name:EZE VARNER Subscriber ID:Not on file Address: [address] [place] [phone] Payer ID:Not on file Group ID:Not on file Type:Self Pay Address: [place], [place] * Guarantor: EZE VARNER Account Type Relation to Patient Date of Phone Billing Address Personal/Family [address] [place] [phone] [employer] SELF PAY NO INSURANCE Member Subscriber Plan / Payer (Ef fective for All Dates) Name:Eze Varner Member ID:Not on file Relation to Subscriber:Not on file Name:EZE VARNER Subscriber ID:Not on file Address: [address] [place], [place] [id number] Payer ID:Not on file Group ID:Not on file Type:Self Pay Address: [place], [place] * Guarantor: EZE VARNER Account Type Relation to Patient Date of Phone Billing Address Personal/Family [address] [place] [phone] [employer] SELF PAY NO INSURANCE Member Subscriber Plan / Payer (Ef fective for All Dates) Name:Eze Varner Ophelia Member ID:Not on file Relation to Subscriber:Not on file Name:EZE VARNER Subscriber ID:Not on file Address: [address] [place] [phone] Payer ID:Not on file Group ID:Not on file Type:Self Pay Address: [place], [place] Care Teams Supervisor Belt And Link Assembly Relationship Specialty Start Date End Date Kim Bryant, INSTRUMENT TESTER-IMPORT CLERK [address] [place] [address] [place] [address] PCP - General 12/14/18
--- OUTSIDE RECORDS SUMMARY | 2025-03-08 10:32 | XMS_ITS | Clinical Summary ---
Author Organization [facility] Address [address] [address] Phone Care Team Providers Care Fruit Stuffer Name Role Phone Claudy Sanchez MD Primary Care Provider [phone] Allergies No known active allergies Medications amLODIPine (NORVASC) 10 MG Tablet 04/28/2018 Active metoprolol tartrate (LOPRESSOR) 50 MG Tablet 04/28/2018 Active ibuprofen (MOTRIN) 800 MG Tablet 01/28/2018 Active hydrocortisone 1 % Cream 05/04/2018 Active buPROPion SR (WELLBUTRIN SR) 150 MG TABLET SR 12 HR 01/28/2018 Active famotidine (PEPCID) 40 MG Tablet Take 1 Tab by mouth every evening. 30 Tab 3 11/29/2018 Active acetaminophen-co deine (TYLENOL #3) 300-30 MG Tablet Take 1 Tab by mouth every 6 hours as needed. Active diclofenac (VOLTAREN) 50 MG Tablet Delayed Response Take 1 Tablet by mouth 2 times daily. 30 Tablet 03/14/2023 Active Active Problems Problem Noted Date Diagnosed Date [place] or callus 05/17/2018 Hallux limitus of left foot 05/17/2018 Hallux limitus, right 05/17/2018 Pain of left great toe 05/17/2018 Pain of great toe, right 05/17/2018 Family History Medical History Relation Name Comments Heart Attack Maternal Grandfather Diabetes Maternal Grandmother Heart Attack Paternal Grandfather Relation Name Status Comments Maternal Grandfather Maternal Grandmother Paternal Grandfather Social History Tobacco Use Types Packs/Day Years Used Date Smoking Tobacco: Every Day Cigarettes Smokeless Tobacco: Never Tobacco Cessation:Ready to Q uit: Yes; Counseling Given: Yes Alcohol Use Standard Drinks/Week Comments No 0 (1 standard drink = 0.6 oz pur e alcohol) Sex and Gender Information Value Date Recorded Sex Assigned at Not on file Legal Sex Male 11:40 PM CDT Gender Identity Not on file Sexual Orientation Not on file Last Filed Vital Signs Vital Sign Reading Time Taken Comments Blood Pressure 175/98 10/18/2023 3:50 PM PROFESSOR OF THEOLOGY Pulse 80 10/18/2023 12:28 PM PROFESSOR OF THEOLOGY Temperature 36.7 C (98.1 F) 10/18/2023 12:28 PM PROFESSOR OF THEOLOGY Respiratory Rate 16 10/18/2023 3:50 PM PROFESSOR OF THEOLOGY Oxygen Saturation 99% 10/18/2023 3:50 PM PROFESSOR OF THEOLOGY Inhaled Oxygen Concentration - - Weight 154.2 kg (340 lb) 10/18/2023 12:28 PM PROFESSOR OF THEOLOGY Height 193 cm (6' 4 ) 10/18/2023 12:28 PM PROFESSOR OF THEOLOGY Body Mass Index 41.39 10/18/2023 12:28 PM PROFESSOR OF THEOLOGY Plan of Treatment Health Maintenance Due Date Last Done Comments Hepatitis C Virus (HCV) Screening 1990 TdaP Immunization 1990 Hepatitis B Immunization (1 of 3 - 19+ 3-dose series) 2011 Pneumococcal Immunization Combined (1 of 2 - PCV) 2011 Influenza Immunization (#1) 2024 SARS-COV-2 Immunization ( - 2023- season) 2024 Respiratory Syncytial Virus (RSV) Immunization (Adult) (1 - 1-dose 75+ series) 2067 DTaP/Tdap/Td Immunization Discontinued 06/01/2015 Meningococcal Immunization (ACWY) Aged Out No longer eligible based on patient's age to complete this topic Rotavirus Immunization Aged Out No lo nger eligible based on patient's age to complete this topic Insurance AETNA ASA Care Teams Fruit Stuffer Relationship Specialty Start Date End Date Claudy Sanchez MD [address] [place] [address] PCP - General Internal Medicine 04/01/20
[2025-03-08 10:34] VITALS: BP 141/79; PULSE 70; RESP 20; TEMP 37.1; O2SAT 95
--- NOTE | 2025-03-08 10:54 | ED.UPPEXIN ---
HPI - Extremity Injury (Upper) General Chief Complaint: Extremity Injury, Upper Stated Complaint: left hand injury Time Seen by Provider: 03/08/25 10:50 Source: patient, family, RN notes reviewed and old records reviewed Mode of arrival: ambulatory Limitations: no limitations History of Present Illness HPI narrative: 34 year old male who presents to [facility] care with complaints of injury to his left hand when he was climbing down from truck and he grabbed ahold of handle to assist himself down feeling sharp pain to his left hand at the third knuckle. When patient tries to straighten his left hand or make a fist the third MCP knuckle dislocates causing increased pain to patient's hand. Patient has strong left radial pulse with nail beds blanching briskly with sensation intact to fingers and hand.Patient has applied ice to his hand. MD complaint: injury to: left and hand Onset (ago): hour(s) (0955 this morning) Other injuries: none Severity scale (1-10): 7 Treatments prior to arrival: cold therapy Related Data Home Medications ?Medication ?Instructions ?Recorded ?Confirmed ?Last Taken ?Type amlodipine 10 mg tablet 10 mg PO DAILY 01/01/20 04/11/24 04/11/24 History losartan 25 mg tablet mg 03/08/25 Unknown History Allergies Allergy/AdvReac Type Severity Reaction Status Date / Time No Known Allergies Allergy Verified 03/08/25 10:47 Review of Systems Review of Systems: CONSTITUTIONAL: Denies fever, chills, or sweats. EYES: Denies visual changes, redness, or discharge. ENT: Denies rhinorrhea, congestion, sore throat, or otalgia. CARDIOVASCULAR: Denies chest pain, palpitations, or edema. RESPIRATORY: Denies cough or dyspnea. GASTROINTESTINAL: Denies abdominal pain, nausea, vomiting, or diarrhea. GENITOURINARY: Denies dysuria or hematuria SKIN: Denies rash or itching. MUSCULOSKELETAL: Denies back pain,positive for pain to his left hand mainly to the 3rd finger MCP joint pain, or myalgia. NEUROLOGIC: Denies headache, numbness, or weakness. PSYCHIATRIC: Denies anxiety or depression. All systems reviewed & are unremarkable except as noted in HPI and below PMFSH Past Medical History Medical History (Updated 03/10/25 @ 00:02 by Background Daemon) Arthritis Hypertension Surgical History Surgical History (Updated 03/10/25 @ 08:44 by Nelly Beckford NP) History of tonsillectomy Family History Family History Father Diabetes mellitus Mother Diabetes mellitus Heart disease Hypertension Social History Social History Social History: Caffeine-none Smoking packs per day: 0.25 Smoking cigarettes per day: 5.0 Years smoked: 15 Smoking pack-years: 3.75 Smoking status: Former smoker Tobacco type: cigarettes Smoking end date: 10/18/22 Alcohol intake: never Substance use: never Substance use type: does not use Do You Feel Safe in your Home?: Yes Lack of Transportation: No Lack of Food: Never True Current Housing: I Have Housing Concerned About Future Housing: No Difficulty Paying Gas/Electric Bills: No Difficulty Paying for Meds: No Currently Unemployed: No Education: High School Diploma/GED Difficulty w/ Childcare or Family Care: No Living arrangements: with family Occupation/Education: occupation 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 There is no relevant family history pertinent to the presenting complaint Exam Narrative: GENERAL: Well-appearing, well-nourished, obese and in no acute distress. HEAD: Normocephalic, atraumatic. EYES: PERRLA and EOMI. ENT: Nares clear, no rhinorrhea or epistaxis. Mucous membranes moist. NECK: Supple.no lymphadenopathy CHEST: Clear to auscultation. No respiratory distress.SAO2 95% on room air HEART: Regular rate and rhythm. No murmur heard. Normal peripheral pulses. ABDOMEN: Soft, nontender, nondistended, normal active bowel sounds. EXTREMITIES: Normal range of motion. No edema. Patient has pain to the left hand at 3rd MCP joint which will dislocate when he tries to straighten his left hand or attempts to make fist, Circulation sensation and mobility is intact to left hand. Patient has not bruising or acute swelling to his left hand, increased pain with movement. SKIN: Warm, dry, no rash. NEURO: No focal deficits. Alert and oriented x3. Course Course Emergency Course: Patient is aware of diagnosis, understands and agrees to treatment plan.? Anticipatory guidance given.? Patient agrees to follow-up as directed and is aware of reasons to seek care at the emergency department. Portions of this record may have been created with voice recognition software Level of Care: Express Care Visit Vital Signs Vital signs: Vital Signs Temperature 37.1 C 03/08/25 10:34 Pulse Rate 70 03/08/25 10:34 Respiratory Rate 20 03/08/25 10:34 Blood Pressure 141/79 H 03/08/25 10:34 Pulse Oximetry 95 03/08/25 10:34 Oxygen Delivery Room Air 03/08/25 10:34 Temperature 37.1 C 03/08/25 10:34 Pulse Rate 70 03/08/25 10:34 Respiratory Rate 20 03/08/25 10:34 Blood Pressure 141/79 H 03/08/25 10:34 Pulse Oximetry 95 03/08/25 10:34 Oxygen Delivery Room Air 03/08/25 10:34 Reviewed MDM - Extremity Injury (Upper) MDM Narrative Medical decision making narrative: [address] Hoyos who is the orthopedic doctor gas combustion engineer today with review of patient symptoms and mechanism of injury and x-ray report. Dr Hoyos will see patient in his office today as soon as he is discharged from our facility. Patient given info for office location and office phone number and will go there as soon as discharged, instructed to not eat or drink anything prior to visit. Differential Diagnosis Differential diagnosis: Likely other (closed dislocation of 3rd MCP joint left hand, ligamnet injury, tendon injury, pain left hand) Medical Records Attestation: I reviewed the patient's medical records. Imaging Data Attestation: I personally reviewed and interpreted this imaging study as follows: My impression: no acute fracture or dislocation noted Radiologist's impression: [facility] [employer] [place] [address] XRay Report Signed Patient: Fili Varner : 1990 MR#: [id number] Age: 34 Acct:[id number] Loc: [facility] ADM Date: 03/08/25Attending Dr: Ordering Physician: Nelly Beckford APRN Date of Service: 03/08/25 Procedure(s): XR hand LT min 3V Accession Number(s): [id number] cc: LISA,ADRIANA PATEL; Nelly Beckford APRN~ Left Hand Technique: PA, oblique, and lateral views were obtained. Clinical History: Injury Findings: No acute fracture or dislocation is seen. Osseous alignment is anatomic. Joint spaces are preserved. Soft tissues are unremarkable. Impression: Unremarkable left hand. Reviewed, dictated and finalized at [facility]. Please be advised this is a medical document. It is intended for sksr-ak-rwoa communication. It is written in medical language and may contain unfamiliar abbreviations or verbiage. Medical documents are intended to carry relevant information, facts as evident, and the clinical opinion of the practitioner at the time of the encounter. This report may have been done utilizing a voice recognition system. Attempts have been made to correct errors. However, there may be uncorrected grammatical, spelling, and recognition errors present. The file time of this note does not necessarily represent the time of service. Dictated By: Haider Parker MD 03/08/25 1103 Signed By: <Electronically signed by Haider Parker MD in OV> Critical Care Time Critical Care Time Critical Care Time: No Discharge Plan Discharge Clinical Impression: Closed dislocation of metacarpophalangeal (MCP) joint of left middle finger Patient Disposition: Home Condition: Stable Instructions: Antibiotic Form Additional Instructions: To see Dr. Hoyos in his office today for further evaluation Patient may take Tylenol or Ibuprofen for his pain. Patient and spouse given information for location and phone number for Dr Hoyos's office. Patient Language: Greenlandic Prescriptions: No Action amlodipine 10 mg Tablet 10 mg PO DAILY losartan 25 mg tablet Follow-up/Referrals: Lisa,Adriana Sotelo APN [Primary Care Provider] - Time of Disposition: 11:59 Quality [place] Coma Scale Eyes: Open Verbal: Oriented and Alert Motor: Follows Commands Sandra Coma Total Score: 15
== END 2025-03-08 12:03 | disposition home or self-care (01) ==
PROVIDERS: Emergency Provider Registered Nurse; PCP Nurse Practitioner Family
DX: S63.263A Dislocation of metacarpophalangeal joint of left middle finger, initial encounter (principal); X58.XXXA Exposure to other specified factors, initial encounter; I10 Essential (primary) hypertension; M19.90 Unspecified osteoarthritis, unspecified site; Z87.891 Personal history of nicotine dependence
CPT/HCPCS: 73130; 99213; G0463

== ENCOUNTER 2025-10-12 17:44 | Emergency (ER) | payer OTHER, SELFPAY ==
--- NOTE | ~2025-10-12 | CT_ITS ---
EXAMINATION: CT abdomen pelvis w con DATE: 10/12/2025 19:55 INDICATION: Right upper quadrant pain radiating to the right lower quadrant. TECHNIQUE: Computed tomography (CT) of the abdomen and pelvis was performed with 100 cc Omnipaque 350 intravenous contrast. The dose-length product was 1699.99 mGy-cm. Automated exposure control and iterative reconstruction technique were employed. COMPARISON: None. FINDINGS: Lung bases unremarkable. Heart size normal. No significant pleural or pericardial effusion. There is a horseshoe kidney. Fatty infiltration of the liver. The spleen, pancreas, adrenal glands are unremarkable. No lymphadenopathy. No significant vascular abnormality. There is grade 2 spondylolisthesis at L5-S1 secondary to spondylolysis. There is advanced disc narrowing and endplate hypertrophy at this level. IMPRESSION: 1. No acute abdominal abnormality. 2: Horseshoe kidney. Reviewed, dictated and finalized at location O. E SUPERINTENDENT
--- NOTE | 2025-10-12 18:07 | ED_ITS ---
HPI - Abdominal Pain General Chief Complaint: Abdominal Pain <Stephani Motley APRN - Last Filed: 10/12/25 18:10> Stated Complaint: RUQ abd. pain <Stephani Motley APRN - Last Filed: 10/12/25 18:10> Time Seen by Provider: 10/12/25 18:07 <Stephani Motley APRN - Last Filed: 10/12/25 18:10> Focused HPI: Patient is a 35-year-old male who presents to the ER with right upper quadrant pain that radiates to his right lower quadrant. He reports his pain started abruptly around 1:00 p.m. this afternoon. Patient denies any nausea, vomiting, diarrhea, recent fevers, or urinary symptoms. He endorses a history of high blood pressure. Patient reports he has no gallbladder history. At time of examination he rates his pain at a 9/10. GENERAL: Ill-appearing, obese, and in acute distress d/t pain. HEAD: Normocephalic, atraumatic. CHEST: Clear to auscultation. ?No respiratory distress. HEART: Regular rate and rhythm.? NEURO: ?Alert and oriented x3. Patient screened in triage and initial orders placed.? ?Additional care and disposition to be based upon?diagnostic testing and treatment. <Stephani Motley APRN - Last Filed: 10/12/25 18:10> Related Data Home Medications: Home Medications ?Medication ?Instructions ?Recorded ?Confirmed ?Last Taken ?Type amlodipine 10 mg tablet 10 mg PO DAILY 01/01/2003/1904/11/24 History losartan 25 mg tablet mg 03/08/25 Unknown History <Stephani Motley APRN - Last Filed: 10/12/25 18:10> Allergies/Adverse Reactions: Allergies Allergy/AdvReac Type Severity Reaction Status Date / Time No Known Allergies Allergy Verified 10/12/25 17:44 <Stephani Motley APRN - Last Filed: 10/12/25 18:10> Review of Systems 2 Review of Systems: All systems reviewed & are unremarkable except as noted in HPI and below <Coral Burr PA-C - Last Filed: 10/12/25 23:05> PMFSH Past Medical History Medical History: Medical History (Updated 10/12/25 @ 22:50 by Coral Burr PA-C) Arthritis Hypertension <Stephani Motley APRN - Last Filed: 10/12/25 18:10> Surgical History Surgical History: Surgical History (Updated 03/10/25 @ 08:44 by Nelly Beckford APRN) History of tonsillectomy <Stephani Motley APRN - Last Filed: 10/12/25 18:10> Family History Family History: Family History Father Diabetes mellitus Mother Diabetes mellitus Heart disease Hypertension <Stephani Motley APRN - Last Filed: 10/12/25 18:10> Social History Social History: Social History Social History: Caffeine-none Smoking packs per day: 0.25 Smoking cigarettes per day: 5.0 Years smoked: 15 Smoking pack-years: 3.75 Smoking status: Former smoker Tobacco type: cigarettes Smoking end date: 10/18/22 Alcohol intake: never Substance use: never Substance use type: does not use Lack of Transportation: No Lack of Food: Never True Current Housing: I Have Housing Concerned About Future Housing: No Difficulty Paying Gas/Electric Bills: No Difficulty Paying for Meds: No Currently Unemployed: No Education: High School Diploma/GED Difficulty w/ Childcare or Family Care: No Living arrangements: with family Occupation/Education: occupation 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 HEAD: Normocephalic, atraumatic. EYES: EOMI. CHEST: Clear to auscultation. No respiratory distress. No wheezes rales or rhonchi HEART: Regular rate and rhythm. No murmur heard. Normal peripheral pulses. ABDOMEN: Soft, nontender, nondistended, normal active bowel sounds. EXTREMITIES: Normal range of motion. No edema. SKIN: Warm, dry, no rash. NEURO: No focal deficits. Alert and oriented x3. PSYCH: Normal mood and affect <Coral Burr PA-C - Last Filed: 10/12/25 23:05> Course Vital Signs Vital signs: Vital Signs Temperature 97.2 F L 10/12/25 18:50 Pulse Rate 86 10/12/25 18:50 Respiratory Rate 16 10/12/25 18:50 Blood Pressure 156/96 H 10/12/25 18:50 Pulse Oximetry 98 10/12/25 18:50 Temperature 97.2 F L 10/12/25 18:50 Pulse Rate 90 10/12/25 21:18 Respiratory Rate 18 10/12/25 21:18 Blood Pressure 144/97 H 10/12/25 21:26 Pulse Oximetry 99 10/12/25 21:18 Oxygen Delivery Room Air 10/12/25 21:18 <Stephani Motley, METAL BONDING ASSEMBLER - Last Filed: 10/12/25 18:10> Vital Signs Temperature 97.2 F L 10/12/25 18:50 Pulse Rate 86 10/12/25 18:50 Respiratory Rate 16 10/12/25 18:50 Blood Pressure 156/96 H 10/12/25 18:50 Pulse Oximetry 98 10/12/25 18:50 Temperature 97.2 F L 10/12/25 18:50 Pulse Rate 90 10/12/25 21:18 Respiratory Rate 18 10/12/25 21:18 Blood Pressure 144/97 H 10/12/25 21:26 Pulse Oximetry 99 10/12/25 21:18 Oxygen Delivery Room Air 10/12/25 21:18 <Coral Burr PA-C - Last Filed: 10/12/25 23:05> [facility] MDM Narrative Medical decision making narrative: Patient presents the emergency department for right upper quadrant abdominal pain. Does report eating [place] food for dinner last night. He is afebrile and nontoxic appearing. His vitals are stable. Cbc without leukocytosis. Metabolic panel without concerning findings. Lipase is normal. Urine without evidence of infection. CT abdomen pelvis without acute findings. Patient updated on his workup and agrees with plan of care. Resting comfortably. Follow-up with general surgery outpatient <Coral Burr PA-C - Last Filed: 10/12/25 23:05> Differential Diagnosis Differential Diagnosis: Biliary colic, GERD, esophagitis <Coral Burr PA-C - Last Filed: 10/12/25 23:05> Lab Data MDM Lab Attestation statement: I personally reviewed the patient's lab results. <Coral Burr PA-C - Last Filed: 10/12/25 23:05> Result diagrams: 10/12/25 19:01 10/12/25 19:01 <Stephani Motley APRN - Last Filed: 10/12/25 18:10> Labs: Lab Results 10/12/25 10/12/25 Range/Units 19:01 22:44 WBC 8.1 (4.5-10.0) K/mm3 RBC 5.26 (4.6-6.20) M/mm3 Hgb 15.1 (14.0-18.0) g/dL Hct 45.0 (42.0-52.0) % MCV 85.6 (80-100) fl MCH 28.7 (26-34) pg MCHC 33.6 (32-36) g/dl RDW 13.2 (11.5-14.5) % Plt Count 234 (150-375) k/mm3 MPV 10.5 H (7.4-10.4) fl Immature Gran % (Auto) 0.1 (0-0.5) % Neut % (Auto) 62.8 (45.5-73.1) % Lymph % (Auto) 27.6 (18.3-44.2) % [place] % (Auto) 6.7 (2.6-8.5) % Eos % (Auto) 2.1 (0-4.4) % Baso % (Auto) 0.7 (0.2-1.2) % Lymph # (Auto) 2.24 (0.9-3.2) K/mm3 [place] # (Auto) 0.5 (0.1-0.6) K/mm3 Eos # (Auto) 0.2 (0-0.3) K/mm3 Baso # (Auto) 0.1 (0.0-0.1) K/mm3 Abs Immat Gran (auto) 0.01 (0.00-0.031) K/mm3 Absolute Neuts (auto) 5.1 (1.3-6.7) K/mm3 Absolute Nucleated RBC 0.000 (0.0-0.012) K/mm3 Nucleated RBC % 0.0 (0.0-0.2) % Sodium 140 (137-145) mmol/L Potassium 4.0 (3.4-5.0) mmol/L Chloride 105 (98-107) mmol/L Carbon Dioxide 27 (22-30) mmol/L Anion Gap 8 (4-12) mmol/L BUN 13 (9-20) mg/dL Creatinine 0.86 (0.7-1.3) mg/dL Estim Creat Clear Calc 190 ml/min Estimated GFR > 60 (59 - ) Glucose 91 (65-110) mg/dL Lactic Acid 1.0 (0.7-2.0) mmol/L Calcium 9.6 (8.4-10.2) mg/dL Total Bilirubin 0.7 (0.2-1.3) mg/dL AST 33 (17-59) U/L ALT 19 (6-50) U/L Alkaline Phosphatase 98 (38-126) U/L Troponin I < 0.012 (0.000-0.034) ng/mL Total Protein 8.4 H (6.3-8.2) g/dL Albumin 4.8 (3.5-5.1) g/dL Lipase 76 (23-300) U/L Urine Color Yellow (Yellow) Urine Appearance Clear (Clear) Urine pH 5.0 (5.0-9.0) Ur Specific [place] > 1.045 H (1.001-1.035) Urine Protein Trace (Negative) mg/dL Urine Glucose (UA) Negative (Negative) mg/dL Urine Ketones Negative (Negative) mg/dL Ur Blood (Man) Negative (Negative) Urine Nitrate Negative (Negative) Urine Bilirubin Negative (Negative) Urine Urobilinogen 0.2 (<2.0) mg/dL Leukocyte Esterase Rfl Negative (Negative) ROB/UL Urine RBC 0-2 (0-2) /hpf Urine WBC 0-5 (0-3) /hpf Ur Squamous Epith Cells None seen (Few) /hpf Urine Bacteria None seen /hpf Urine Casts 0-2 <Stephani L. Wilburn, METAL BONDING ASSEMBLER - Last Filed: 10/12/25 18:10> Lab Results 10/12/25 10/12/25 Range/Units 19:01 22:44 WBC 8.1 (4.5-10.0) K/mm3 RBC 5.26 (4.6-6.20) M/mm3 Hgb 15.1 (14.0-18.0) g/dL Hct 45.0 (42.0-52.0) % MCV 85.6 (80-100) fl MCH 28.7 (26-34) pg MCHC 33.6 (32-36) g/dl RDW 13.2 (11.5-14.5) % Plt Count 234 (150-375) k/mm3 MPV 10.5 H (7.4-10.4) fl Immature Gran % (Auto) 0.1 (0-0.5) % Neut % (Auto) 62.8 (45.5-73.1) % Lymph % (Auto) 27.6 (18.3-44.2) % [place] % (Auto) 6.7 (2.6-8.5) % Eos % (Auto) 2.1 (0-4.4) % Baso % (Auto) 0.7 (0.2-1.2) % Lymph # (Auto) 2.24 (0.9-3.2) K/mm3 [place] # (Auto) 0.5 (0.1-0.6) K/mm3 Eos # (Auto) 0.2 (0-0.3) K/mm3 Baso # (Auto) 0.1 (0.0-0.1) K/mm3 Abs Immat Gran (auto) 0.01 (0.00-0.031) K/mm3 Absolute Neuts (auto) 5.1 (1.3-6.7) K/mm3 Absolute Nucleated RBC 0.000 (0.0-0.012) K/mm3 Nucleated RBC % 0.0 (0.0-0.2) % Sodium 140 (137-145) mmol/L Potassium 4.0 (3.4-5.0) mmol/L Chloride 105 (98-107) mmol/L Carbon Dioxide 27 (22-30) mmol/L Anion Gap 8 (4-12) mmol/L BUN 13 (9-20) mg/dL Creatinine 0.86 (0.7-1.3) mg/dL Estim Creat Clear Calc 190 ml/min Estimated GFR > 60 (59 - ) Glucose 91 (65-110) mg/dL Lactic Acid 1.0 (0.7-2.0) mmol/L Calcium 9.6 (8.4-10.2) mg/dL Total Bilirubin 0.7 (0.2-1.3) mg/dL AST 33 (17-59) U/L ALT 19 (6-50) U/L Alkaline Phosphatase 98 (38-126) U/L Troponin I < 0.012 (0.000-0.034) ng/mL Total Protein 8.4 H (6.3-8.2) g/dL Albumin 4.8 (3.5-5.1) g/dL Lipase 76 (23-300) U/L Urine Color Yellow (Yellow) Urine Appearance Clear (Clear) Urine pH 5.0 (5.0-9.0) Ur Specific [place] > 1.045 H (1.001-1.035) Urine Protein Trace (Negative) mg/dL Urine Glucose (UA) Negative (Negative) mg/dL Urine Ketones Negative (Negative) mg/dL Ur Blood (Man) Negative (Negative) Urine Nitrate Negative (Negative) Urine Bilirubin Negative (Negative) Urine Urobilinogen 0.2 (<2.0) mg/dL Leukocyte Esterase Rfl Negative (Negative) ROB/UL Urine RBC 0-2 (0-2) /hpf Urine WBC 0-5 (0-3) /hpf Ur Squamous Epith Cells None seen (Few) /hpf Urine Bacteria None seen /hpf Urine Casts 0-2 <Coral Burr PA-C - Last Filed: 10/12/25 23:05> Imaging Data Radiologist's impression: ITS Impressions Abdomen/Pelvis CT 10/12/25 20:01 IMPRESSION: 1. No acute abdominal abnormality. 2: Horseshoe kidney. <Stephani Motley APRN - Last Filed: 10/12/25 18:10> ITS Impressions Abdomen/Pelvis CT 10/12/25 20:01 IMPRESSION: 1. No acute abdominal abnormality. 2: Horseshoe kidney. <Coral Burr PA-C - Last Filed: 10/12/25 23:05> Critical Care Time Critical Care Time Critical Care Time: No <Coral Burr PA-C - Last Filed: 10/12/25 23:05> Discharge Plan Discharge Clinical Impression: Abdominal pain, right upper quadrant <Stephani Motley APRN - Last Filed: 10/12/25 18:10> Patient Disposition: Home <Stephani Motley APRN - Last Filed: 10/12/25 18:10> Condition: Improved <Stephani Motley APRN - Last Filed: 10/12/25 18:10> Instructions: Biliary Colic (ED), Low Fat Diet (ED), Abdominal Pain (ED) <Stephani Motley APRN - Last Filed: 10/12/25 18:10> Additional Instructions: Return to the ER if you experience fever, abdominal pain with nausea and vomiting, you are unable to keep down liquids or solids, or any other symptoms that are concerning to you Remain well hydrated. Low fat diet Follow up with general surgery <Stephani Motley APRN - Last Filed: 10/12/25 18:10> Patient Language: Azeri <Stephani Motley APRN - Last Filed: 10/12/25 18:10> Prescriptions: No Action amlodipine 10 mg Tablet 10 mg PO DAILY losartan 25 mg tablet <Stephani Motley APRN - Last Filed: 10/12/25 18:10> Follow-up/Referrals: Rosenthal,Adriana Sotelo APN [Primary Care Provider, Unknown] Telly Miranda MD [Physician, General Surgery] <Stephani Motley APRN - Last Filed: 10/12/25 18:10>
[2025-10-12 18:50] VITALS: BP 156/96; PULSE 86; RESP 16; TEMP 36.2; O2SAT 98
[2025-10-12 19:11] LABS: Hematocrit 45.0 % (42.0-52.0); Hemoglobin 15.1 g/dL (14.0-18.0); Immature Granulocyte Percent A 0.1 % (0-0.5); Lymphocytes Absolute Auto 2.24 K/mm3 (0.9-3.2); Mean Corpuscular HGB Conc 33.6 g/dl (32-36); Mean Corpuscular Hemoglobin 28.7 pg (26-34); Mean Corpuscular Volume 85.6 fl (80-100); Nucleated Red Blood Cells Absolute Auto 0.000 K/mm3 (0.0-0.012); Nucleated Red Blood Cells Perc 0.0 % (0.0-0.2); Platelet Count Result 234 k/mm3 (150-375); Red Blood Count 5.26 M/mm3 (4.6-6.20); White Blood Count 8.1 K/mm3 (4.5-10.0)
[2025-10-12 19:22] LABS: Alanine Aminotransferase 19 U/L (6-50); Albumin Level 4.8 g/dL (3.5-5.1); Alkaline Phosphatase 98 U/L (38-126); Anion Gap 8 mmol/L (4-12); Aspartate Amino Transferase 33 U/L (17-59); Bilirubin,Total 0.7 mg/dL (0.2-1.3); Blood Urea Nitrogen 13 mg/dL (9-20); Calcium 9.6 mg/dL (8.4-10.2); Carbon Dioxide 27 mmol/L (22-30); Chloride 105 mmol/L (98-107); Estimated CRCL calculation 190 ml/min; Estimated Glomerular Filt Rate > 60; Glucose 91 mg/dL (65-110); Lipase 76 U/L (23-300); Potassium 4.0 mmol/L (3.4-5.0); Sodium 140 mmol/L (137-145); Total Protein 8.4 g/dL (6.3-8.2)
[2025-10-12 19:34] LABS: Troponin I < 0.012 ng/mL (0.000-0.034)
[2025-10-12 21:18] VITALS: PULSE 90; RESP 18; O2SAT 99
[2025-10-12 21:26] VITALS: BP 144/97
--- OUTSIDE RECORDS SUMMARY | 2025-10-12 21:36 | XMS_ITS | Clinical Summary ---
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 This disclosure is being madepursuant to the Care Everywhere program and may not contain all information available regarding this patient. 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 Gender Identity Not on file Sexual Orientation Not on file Last Filed Vital Signs Vital Sign Reading Time Taken Comments Blood Pressure - - Pulse - - Temperature - - Respiratory Rate - - Oxygen Saturation - - Inhaled Oxygen Concentration - - Weight 154.7 kg (341 lb) 02/07/2019 4:00 PM CDT Height 193 cm (6' 4) 02/07/2019 4:00 PM CDT Body Mass Index 41.51 02/07/2019 4:00 PM CDT Plan of Treatment Health Maintenance Due Date Last Done Comments HIV SCREENING 2007 HEPATITIS C SCREENING 06/16/2010 DTAP/TDAP/TD VACCINES (1 - Tdap) 2011 HEPATITIS B VACCINE (1 of 3 - 19+ 3-dose series) 2011 PNEUMOCOCCAL VACCINE (1 of 2 - PCV) 2011 HPV VACCINE (1 - 3-dose SCDM series) 2019 DEPRESSION SCREENING 10/18/2024 COVID-19 VACCINE (1 - 2024-2 6 season) 2025 INFLUENZA VACCINE (#1) 2025 ZOSTER VACCINE (1 of 2) 2042 HIB VACCINE Aged Out No longer eligi ble based on patient's age to complete this topic MENINGOCOCCAL (Group B) VACC INE SHARED DECISION-MAKING Aged Out No longer eligibl e based on patient's age to complete this topic MENINGOCOCCAL GROUPS A/C/Y/W VACCINE Aged Out No longer eligible b ased on patient's age to complete this topic Insurance [facility] [employer] - OUT OF [facility] * Guarantor: EZE VARNER Account Type Relation to Patient Date of Phone Billing Address Personal/Family [address] [place] [phone] [employer] SELF PAY NO INSURANCE Member Subscriber Plan / Payer (Ef fective for All Dates) Name:Eze Varner Member ID:Not on file Relation to Subscriber:Not on file Name:EZE VARNER Subscriber ID:Not on file Address: [address] [place] [phone] Payer ID:Not on file Group ID:Not on file Type:Self Pay Address: [place], [place] * Guarantor: EZE VARNER Account Type Relation to Patient Date of Phone Billing Address Personal/Family [address] [place] [phone] [employer] SELF PAY NO INSURANCE Member Subscriber Plan / Payer (Ef fective for All Dates) Name:Eze Varner Member ID:Not on file Relation to Subscriber:Not on file Name:EZE VARNER Subscriber ID:Not on file Address: [address] [place] [phone] Payer ID:Not on file Group ID:Not on file Type:Self Pay Address: [place], [place] * Guarantor: EZE VARNER Account Type Relation to Patient Date of Phone Billing Address Personal/Family [address] [place] [phone] [employer] SELF PAY NO INSURANCE Member Subscriber Plan / Payer (Ef fective for All Dates) Name:Telly Eze Ophelia Member ID:Not on file Relation to Subscriber:Not on file Name:EZE VARNER Subscriber ID:Not on file Address: [address] [place] [phone] Payer ID:Not on file Group ID:Not on file Type:Self Pay Address: [place], [place] Care Teams Patient Ombudsperson Relationship Specialty Start Date End Date Kim Bryant, WAX POT TENDER-DIRECTOR LEARNING AND DEVELOPMENT [address] [place] [address] [place] [phone] PCP - General 12/14/18
--- OUTSIDE RECORDS SUMMARY | 2025-10-12 21:36 | XMS_ITS | Clinical Summary ---
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 Active losartan (COZAAR) 50 mg tablet Take 1 tablet (50 mg total) by mouth daily Active aspirin 81 mg enteric coated tablet Take 1 tablet (81 mg total) by mouth daily 03/15/2025 Active atorvastatin (LIPITOR) 20 mg tablet Take 1 tablet (20 mg total) by mouth daily 03/15/2025 Active metoprolol tartrate (LOPRESSOR) 25 mg immediate release tablet Take 0.5 tablets (12.5 mg total) by mouth daily 15 tablet 1 06/30/2025 Active Active Problems Problem Noted Date Diagnosed Date Cervical strain, acute, initial encounter 2020 Closed head injury 07/28/2021 Fall, accidental, initial encounter 07/28/2021 Adiposity 08/02/2012 Overview (01/20/2017): Obesity Social History Tobacco Use Types Packs/Day Years Used Date Smoking Tobacco: Never Smokeless Tobacco: Never Alcohol Use Standard Drinks/Week Comments No 0 (1 standard drink = 0.6 oz pur e alcohol) Personal Safety Answer Date Recorded Have you ever been in or are you currently in a harmful physical or emotional relationship or is someone making you feel afraid or unsafe? 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 Gender Identity Not on file Sexual Orientation Not on file Last Filed Vital Signs Vital Sign [place] Time Taken Comments Blood Pressure 130/90 06/30/2025 2:30 PM CDT Pulse 73 06/30/2025 2:30 PM CDT Temperature 37.1 C (98.7 F) 06/30/2025 11:35 AM CDT Respiratory Rate 23 06/30/2025 2:30 PM CDT Oxygen Saturation 95% 06/30/2025 12:55 PM CDT Inhaled Oxygen Concentration - - Weight 178.7 kg (394 lb) 06/30/2025 11:35 AM CDT Height 193 cm (6' 4) 06/30/2025 11:39 AM CDT Body Mass Index 47.96 06/30/2025 11:35 AM CDT Plan of Treatment Health Maintenance Due Date Last Done Comments Depression Screening 1992 Hepatitis C Screening 1992 Varicella Vaccines (1 of 2 - 13+ 2-dose series) 2005 Hepatitis B Screening 2010 Regular Well Visit/Exam 18-64 2010 HPV Vaccines (1 - 3-dose SCD M series) 2019 Influenza Vaccine (#1) 2025 DTaP/Tdap/Td Vaccine (4 - Td or Tdap) 01/05/2035 01/05/2025, 06/01/2015, 12/19/2007 Pneumococcal vaccine <65 Aged Out No longer eligible based on patient's age to complete this topic Insurance [employer] SIG [id number] IDPA AETNA SIG [id number] AET[employer] SIG [id number] Care Teams School Bus Driver/Teacher Assistant Relationship Specialty Start Date End Date Adriana oRsenthal NP [address] [address] [facility] - General 01/05/25
--- OUTSIDE RECORDS SUMMARY | 2025-10-12 21:36 | XMS_ITS | Data Portability ---
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 Abnormal EKG with atypical chest pain : In light of strong family history of premature CAD and risk factor profile as outlined, obtain treadmill Myoview. Red flag symptoms reviewed. Bradycardia : Discontinue metoprolol. Self rhythm monitoring reinforced. Declines likelihood of PHILL at this juncture. Thyroid studies normal. Hypertension: After discontinuation of metoprolol, we will initiate losartan 25 mg daily. Continue amlodipine 10 daily. Encouraged hydration, limiting caffeine/alcohol. Due to previous potassium of 4.4, obtain follow-up CMP after initiation of losartan. Low-potassium diet reviewed. We will request a close interval follow-up in 3 months. Patient instructed to reach out to us with home blood pressure readings for further titration of antihypertensive therapy in the interim, if indicated. On behalf of the Cardiovascular Services at [facility] [place] [facility], we appreciate the opportunity to participate in the care of your patient. Please feel free to reach out to us for any questions regarding your patient's cardiac care. Avel Michele MD, FACC [facility] Cardiology [email or web address] Not available 02/23/2025 09:07:11 Plan of Treatment Reminders Order Date Submit Date Provider Last Modified By Organization Details Last Modified Time Details Appointments ANY 15 2025 07:30A M Adriana Gonzalez, PERFORMANCE TEST CONSULTANT, WASHING AND SCREENING PLANT SUPERVISOR-C Not available Not available Not available Lab CMP, serum or plasma 2024 025 TOO [facility], [address] [facility], [facility] [address], [place], [address], 05/08/2025 03:36:06 lipid panel, serum 2024 025 TOO [facility], [address] [facility], [facility] [address], [place], [address], 05/08/2025 03:36:05 BMP, serum or plasma 2024 025 TOO [facility], [address] [facility], [facility] [address], [place], [address], 05/08/2025 03:36:08 Referral sleep medicine referral - Eval and mx of suspecte d PHILL 2024 025 niki Augilar MD, [address] [facility] , [facility] [address], [place], [address], 08/30/2025 12:25:42 sleep medicine referral - Eval and Rx of suspecte d PHILL 2024 025 terry [facility], [address] [facility], [place], [address], 06/11/2025 17:35:08 Procedures None recorded . Surgeries None recorded . Imaging CT, angiogra m, coronary arteries with fraction al flow reserve - If FFR measurem ent is indicate d, please perform. 2024 025 [email or web address] [facility], [address] [place] [address], [address], 06/11/2025 14:52:14 US, groin - TSA frequent ly flags groin area; please call pt to schedule apt 2024 025 TOO Asa [facility] Scheduling, [address] [facility] [place], [address], 05/19/2025 15:30:23 electroc ardiogra m 2024 In-Office Order, Internal Use Only DO Not Attach Compendium DO Not Attach Compendium, Do Not Delete/merge, [id number] 02/23/2025 08:58:24 US, echocard iogram, transtho racic, complete , w/ color flow 2024 [facility], [address], [address], [place], [address], 03/13/2025 14:02:03 SPECT, myocardi al perfusio n, multiple - Treadmil l 2024 [facility], [address], [address], [place], [address], 03/14/2025 18:01:34 Medication Orders atorvast atin 20 mg tablet 2024 025 [facility][id number], [address] [place], [address], 03/15/2025 10:21:52 aspirin 81 mg tablet,d elayed release 2024 025 [facility] #[id number], [address] [place], [address], 03/15/2025 10:21:52 losartan 25 mg tablet 2024 025 [facility] #[id number], [address] [place], [address], 03/01/2025 08:43:41 Patient TargetsNo targets recorded. Patient Instructions Encounter Date Encounter Id Patient Instructions Last Modified By Organization Details Last Modified Time 02/23/2025 [id number] A healthy lifestyle: care instructions [email or web address] Not available 02/23/2025 08:58:24 03/15/2025 [id number] A healthy lifestyle: care instructions [email or web address] Not available 03/15/2025 10:21:49 05/07/2025 [id number] learning about high blood pressure Not available 05/07/2025 09:26:30 A healthy lifestyle: care instructions Not available 05/07/2025 09:26:30 Continue all medications as prescribed. Not available 05/07/2025 14:27:21 keep f/u as planned Not available 05/07/2025 14:27:28 05/18/2025 [id number] A healthy lifestyle: care instructions Not available 05/18/2025 10:13:47 07/12/2025 [id number] prediabetes: car e instructions Not available 07/12/2025 08:58:05 When You Want to Lose Weight: Care Instructions Not available 07/12/2025 08:58:05 learning about high blood pressure Not available 07/12/2025 08:58:05 Increase intake of fresh fruits, and vegetables. Avoid packaged foods and fast foods. Follow a low salt diet, drink at least 8-10 8oz glasses of water a day, exercise most days of the week. Take all medications as prescribed. Keep appointments with PCP and all specialists. Not available 07/12/2025 08:47:22 follow up as needed, yearly to keep established with provider Not available 07/12/2025 08:46:50 Reason for Referral Sleep Medicine Referral for Obese class III Eval and Rx of suspected PHILL Referring Physician: Avel Michele Cardiology, Encounter Date: 03/15/2025 Sleep Medicine Referral for Obese class III Eval and mx of suspected PHILL Referring Physician: Avel Michele Cardiology, Encounter Date: 05/18/2025 Results Created Date Observation Date Name Description Value Unit Range Abnormal Flag Note LastModifiedBy Organization Detail LastModifiedTime 05/07/2005/07/2025 LIPID PANEL cholesterol, total 139 mg/dL 100-19 9 Not Available [facility] ([facility]) [address] [facility], [place], [address], 05/08/2025 03:36:05 05/07/20 25 05/07/2025 LIPID PANEL triglyceride s 97 mg/dL 0-149 Not Available [facility] ([facility]) [address] [place], [address], 05/08/2025 03:36:05 05/07/20 25 05/07/2025 LIPID PANEL HDL cholesterol 52 mg/dL >39 Not Available [facility] ([facility]) [address] [place], [address], 05/08/2025 03:36:05 05/07/20 25 05/07/2025 LIPID PANEL VLDL cholesterol hang 18 mg/dL 5-40 Not Available [facility] ([facility]) [address] [place], [address], 05/08/2025 03:36:05 05/07/20 25 05/07/2025 LIPID PANEL LDL chol calc ([facility]) 69 mg/dL 0-99 Not Available [facility] ([facility]) [address] [place], [address], 05/08/2025 03:36:05 05/07/20 25 05/07/2025 COMP. METAB OLIC PANEL (14) glucose 94 mg/dL 70-99 Not Available [facility] ([facility]) [address] [place], [address], 05/08/2025 03:36:06 05/07/20 25 05/07/2025 COMP. METAB OLIC PANEL (14) BUN 15 mg/dL 6-20 Not Available [facility] ([facility]) [address] [place], [address], 05/08/2025 03:36:06 05/07/20 25 05/07/2025 COMP. METAB OLIC PANEL (14) creatinine 0.91 mg/dL 0.76-1 .27 Not Available [facility] ([facility]) [address] [place], [address], 05/08/2025 03:36:06 05/07/20 25 05/07/2025 COMP. METAB OLIC PANEL (14) eGFR 115 mL/mi n/1.7 3 >59 Not Available [facility] ([facility]) [address], [place], [address], 05/08/2025 03:36:06 05/07/20 25 05/07/2025 COMP. METAB OLIC PANEL (14) BUN/creatini ne ratio 16 9-20 Not Available [facility] ([facility]) [address] [facility], [place], [address], 05/08/2025 03:36:06 05/07/20 25 05/07/2025 COMP. METAB OLIC PANEL (14) sodium 141 mmol/ L 134-14 4 Not Available [facility] ([facility]) [address] [facility], [place], [address], 05/08/2025 03:36:06 05/07/20 25 05/07/2025 COMP. METAB OLIC PANEL (14) potassium 4.5 mmol/ L 3.5-5. 2 Not Available [facility] ([facility]) [address] [facility], [place], [address], 05/08/2025 03:36:06 05/07/20 25 05/07/2025 COMP. METAB OLIC PANEL (14) chloride 103 mmol/ L 96-106 Not Available [facility] ([facility]) [address] [facility], [place], [address], 05/08/2025 03:36:06 05/07/20 25 05/07/2025 COMP. METAB OLIC PANEL (14) carbon dioxide, total 22 mmol/ L 20-29 Not Available [facility] ([facility]) [address] [facility], [place], [address], 05/08/2025 03:36:06 05/07/20 25 05/07/2025 COMP. METAB OLIC PANEL (14) calcium 9.8 mg/dL 8.7-10 .2 Not Available [facility] ([facility]) [address] [facility], [place], [address], 05/08/2025 03:36:06 05/07/20 25 05/07/2025 COMP. METAB OLIC PANEL (14) protein, total 7.0 g/dL 6.0-8. 5 Not Available [facility] ([facility]) [address] [facility], [place], [address], 05/08/2025 03:36:06 05/07/20 25 05/07/2025 COMP. METAB OLIC PANEL (14) albumin 4.4 g/dL 4.1-5. 1 Not Available [facility] ([facility]) [address] [facility], [place], [address], 05/08/2025 03:36:06 05/07/20 25 05/07/2025 COMP. METAB OLIC PANEL (14) globulin, total 2.6 g/dL 1.5-4. 5 Not Available [facility] ([facility]) [address] [facility], [place], [address], 05/08/2025 03:36:06 05/07/20 25 05/07/2025 COMP. METAB OLIC PANEL (14) bilirubin, total 0.4 mg/dL 0.0-1. 2 Not Available [facility] ([facility]) [address] [facility], [place], [address], 05/08/2025 03:36:06 05/07/20 25 05/07/2025 COMP. METAB OLIC PANEL (14) alkaline phosphatase 79 IU/L 44-121 Not Available [facility]) [address] [facility], [place], [address], 05/08/2025 03:36:06 05/07/20 25 05/07/2025 COMP. METAB OLIC PANEL (14) AST (SGOT) 14 IU/L 0-40 Not Available [facility] ([facility]) [address] [place], [address], 05/08/2025 03:36:06 05/07/20 25 05/07/2025 COMP. METAB OLIC PANEL (14) ALT (SGPT) 11 IU/L 0-44 Not Available [facility] ([facility]) [address] [facility], [place], [address], 05/08/2025 03:36:06 05/07/20 25 05/07/2025 BMP7+ EGFR glucose 94 mg/dL 70-99 Not Available [facility] ([facility]) [address] [facility] [place] [place], [address], 05/08/2025 03:36:08 05/07/20 25 05/07/2025 BMP7+ EGFR BUN 15 mg/dL 6-20 Not Available [facility] ([facility]) [address] [facility], [place], [address], 05/08/2025 03:36:08 05/07/20 25 05/07/2025 BMP7+ EGFR creatinine 0.93 mg/dL 0.76-1 .27 Not Available [facility] ([facility]) [address] [facility], [place], [address], 05/08/2025 03:36:08 05/07/20 25 05/07/2025 BMP7+ EGFR eGFR 112 mL/mi n/1.7 3 >59 Not Available [facility] ([facility]) [address] [facility] [place] [place], [address], 05/08/2025 03:36:08 05/07/20 25 05/07/2025 BMP7+ EGFR sodium 140 mmol/ L 134-14 4 Not Available [facility] ([facility]) [address] [facility] [place] [place], [address], 05/08/2025 03:36:08 05/07/20 25 05/07/2025 BMP7+ EGFR potassium 4.8 mmol/ L 3.5-5. 2 Not Available [facility] ([facility]) [address] [facility], [place], [address], 05/08/2025 03:36:08 05/07/20 25 05/07/2025 BMP7+ EGFR chloride 103 mmol/ L 96-106 Not Available [facility] ([facility]) [address] [facility], [place], [address], 05/08/2025 03:36:08 05/07/20 25 05/07/2025 BMP7+ EGFR carbon dioxide, total 23 mmol/ L 20-29 Not Available [facility] ([facility]) [address] [facility], [place], [address], 05/08/2025 03:36:08 02/24/20 25 02/23/2025 elect rocar diogr am No observ ation record ed. GILMAN In-Office Order Internal Use Only DO Not Attach Compendium DO Not Attach Compendium, Do Not Delete/merge, [id number] 02/23/2025 09:18:14 02/24/20 elect rocar diogr am No observ ation record ed. [email or web address] Not Available 2024 09:18:14 03/08/20 25 03/08/2025 XR, hand, 3 or more view No observ ation record ed. [email or web address] [facility] [address], [place], [address], 03/09/2025 10:20:26 03/13/20 25 03/09/2025 US, echoc ardio gram, trans thora cic, compl ete, w/ color flow No observ ation record ed. [facility] Scheduling [address], [place], [address], 03/13/2025 14:10:22 03/14/20 25 03/13/2025 SPECT , myoca rdial perfu mike, multi ple No observ ation record ed. [facility] Scheduling [address], [place], [address], 03/15/2025 09:51:19 03/15/20 25 03/13/2025 SPECT , myoca rdial perfu mike, multi ple No observ ation record ed. [facility] Scheduling [address], [place], [address], 03/15/2025 09:51:20 05/19/2005/11/2025 US, groin No observ ation record ed. [address], [address], 05/30/2025 15:15:58 07/19/2006/29/2025 CT, angio gram, coron padmini arter ies with fract ional flow reser ve No observ ation record ed. [facility] [address] [facility], [place], [address], 07/19/2025 14:35:24 07/19/2006/29/2025 CT, angio gram, coron padmini arter ies with fract ional flow reser ve No observ ation record ed. [facility] [address] [facility], [place], [address], 07/19/2025 22:38:35 Result Notes None recorded. Problems Name Problem SNOMED Code Status Onset Date Resolution Date Notes Provider Name and Address Organization Details Recorded Time Essential hypertens ion 13301775 Active 2019 Claudy Sanchez MD Attn: Felix greene,[address] [facility], [place], [address], [place] - [facility] 2 09:30:35 Smoker 95354342 Completed 201901/05/2025 quit 02/07 Adriana Gonzalez APN, WASHING [employer] SCRE[employer]ING PLANT SUPERVISOR-C Attn: Felix greene,[address] [place], [address], [place] - [facility] 5 09:41:58 Pain of left hip joint 247648553348 100 Active 2019 sees ortho Claudy Sanchez MD Attn: Felix greene,[address] [facility], [place], [address], [place] - [facility] 2 09:30:35 Morbid obesity 026114957 Active 2021 -refer red to sleep study Claudy Sanchez MD Attn: Felix greene,[address] [facility], [place], [address], [place] - [facility] 3 08:47:00 Enlarged tonsil 524186584 Completed 202301/05/2025 -has apt with ENT on 02/23/24 Adriana Gonzalez APN, WASHING AND SCREENING PLANT SUPERVISOR-C Attn: aCrlossanta greene,[address] [facility], [place], [address], [facility] - SIF 5 09:41:53 Family history of premature coronary heart disease 132531444 Active 2024 Adriana Gonzalez APN, WASHING [employer] SCRE[employer]ING PLANT SUPERVISOR-C Attn: Carlossanta greene,[address] [facility], [place], [address], [place] - [facility] 5 09:41:32 Bradycard ia 97107045 Active 2024 Adriana Gonzalez APN, WASHING [employer] SCRE[employer]ING [employer]ANT SUPERVISOR-C Attn: Carlossanta greene,[address] [facility], [place], [address], [place] - [facility] 5 09:41:34 Ex-smoker 8329377 Active 2024 Adriana Gonzalez APN, W[employer]ING [employer] SCRE[employer]ING [employer]ANT SUPERVISOR-C Attn: Felix ramona,[address] [facility], [place], [address], [place] - [facility] 5 09:41:37 Obese class III 050414700 Active 2024 Adriana Gonzalez APN, WASHING [employer] SCRE[employer]ING PLANT SUPERVISOR-C Attn: Felix ramona,[address] [facility], [place], [address], [place] [facility] 14:27:07 Problem Notes None recorded. Procedures Surgical History Date Name Laterality Status Provider Name and Address Organization Details Recorded Time 04/11/2025 repair of tendon completed Ema Boyce MA [facility] 05/07/2025 09:11:20 04/11/2024 tonsilectom y/adenoids completed COLEEN Kelley [facility] 04/17/2024 14:31:59 Imaging Results None recorded. Procedure Notes None recorded. Medical Equipment None Reported. Allergies No known drug allergies Medications Name Sig Start Date Stop Date Status Note LastModified by Organization Details LastModified Time losartan 50 mg tablet TAKE 1 TABLET BY MOUTH EVERY DAY 2024 active Not Available Not Available Not Avai lable amoxicill in 500 mg capsule TAKE 1 CAPSULE BY MOUTH 3 TIMES A DAY 01/05 completed Not Available Not Available Not Available atorvasta tin 20 mg tablet TAKE 1 TABLET BY MOUTH EVERY DAY active Not Available Not Available No t Available meloxicam 15 mg tablet Take 1 tablet every day by oral route with meals. 07/24 completed Not Available Not Available Not Available metoprolo l succinate ER 100 mg tablet,ex tended release 24 hr TAKE 1 TABLET BY MOUTH EVERY DAY 02/12 completed Not Available Not Available Not Available sumatript an 50 mg tablet PLEASE SEE ATTACHED FOR DETAILED DIRECTIO NS 03/07 completed not taking Not Available Not Available Not Available penicilli n V potassium 500 mg tablet TAKE 1 TABLET BY MOUTH 4 TIMES DAILY FOR 10 DAYS 11/29 completed Not Available Not Available Not Available aspirin 81 mg tablet,de layed release TAKE 1 TABLET BY MOUTH EVERY DAY active Not Available Not Available No t Available triamcino lone acetonide 0.1 % topical cream APPLY A THIN LAYER TO THE AFFECTED AREA(S) BY TOPICAL ROUTE 2 TIMES PER DAY 07/28 completed Not Available Not Available Not Available ketorolac 0.5 % eye drops 03/07 completed not taking Not Available Not Available Not Available ofloxacin 0.3 % ear drops INSTILL 5 DROPS INTO RIGHT EAR TWICE A DAY FOR 10 DAYS 07/28 completed not using anymore Not Available Not Available Not Available amlodipin e 10 mg tablet TAKE 1 TABLET BY MOUTH EVERY DAY active Not Available Not Available No t Available erythromy lisset 5 mg/gram (0.5 %) eye ointment 03/07 completed not taking Not Available Not Available Not Available prednison e 50 mg tablet TAKE 1 TABLET BY MOUTH DAILY FOR 4 DAYS 11/29 completed Not Available Not Available Not Available losartan 25 mg tablet Take 1 tablet every day by oral route. 03/01 completed Not Available Not Available Not Available metoprolo l tartrate 50 mg tablet TAKE 1 TABLET BY MOUTH TWICE A DAY 02/12 completed Not Available Not Available Not Available hydroxyzi ne HCl 25 mg tablet TAKE 1 TABLET BY MOUTH TWICE A DAY 07/28 completed Not Available Not Available Not Available naproxen 500 mg tablet 05/06 completed Not Available Not Available Not Available oxycodone 5 mg tablet TAKE 1 TABLET BY MOUTH EVERY 6 TO 8 HOURS NEEDED FOR PAIN 07/28 completed Not Available Not Available Not Available metoprolo l tartrate 25 mg tablet TAKE 1/2 TABLET BY MOUTH EVERY DAY active does not take Not Available Not Available Not Available Victoza 3-Ptee 0.6 mg/0.1 mL (18 mg/3 mL) subcutane ous pen injector Inject 0.6 mg every day by subcutan eous route. 07/24 completed Not Available Not Available Not Available Vitals Date Recorded Body height Body mass index (BMI) Body weight Heart rate Oxygen saturation Systolic And Diastolic Provider Name and Address Organization Details Last Updated DateTime 5 193.04 cm 47.6 kg/m2 178750. 62 g 52 /min 98 % 124/90 mm[Hg] Henrietta Lee RN [place] - [facility] 5 08:39:25 Date Recorded Body height Body mass index (BMI) Body weight Respiratory rate Heart rate Oxygen saturation Systolic And Diastolic Provider Name and Address Organization Details Last Updated DateTime 5 193.04 cm 46.9 kg/m2 686933. 06 g 18 /min 67 /min 98 % 126/80 mm[Hg] Alice Richard LPN [place] [facility] 5 10:08:17 Date Recorded Body height Body mass index (BMI) Body weight Body temperature Oxygen saturation Heart rate Systolic And Diastolic Provider Name and Address Organization Details Last Updated DateTime 5 193.04 cm 49.9 kg/m2 454608. 22 g 97.3 [degF] 96 % 67 /min 141/84 mm[Hg] Ema Boyce MA [facility] 5 09:09:09 Date Recorded Body height Body mass index (BMI) Body weight Respiratory rate Heart rate Oxygen saturation Systolic And Diastolic Provider Name and Address Organization Details Last Updated DateTime 5 193.04 cm 49.5 kg/m2 573442. 09 g 18 /min 69 /min 98 % 114/70 mm[Hg] Alice Richard LPN [facility] 5 10:02:17 Date Recorded Body height Body mass index (BMI) Body weight Oxygen saturation Respiratory rate Body temperature Heart rate Systolic And Diastolic Provider Name and Address Organization Details Last Updated DateTime 5 193.04 cm 50.4 kg/m2 871426. 24 g 95 % 16 /min 97.5 [degF] 66 /min 142/88 mm[Hg] COLEEN Kelley [facility] 5 08:38:17 Social History Question Answer Notes LastModified by Organizat ion Details LastModified Time Tobacco Smoking Status Former Smoker quit January 2023 Marjorie Davis MA [facility] 06/04/2023 08:26:04 Do You Have An Advance Directive? No Information not available 03/18/2020 Are You Blind Or Do You Have Difficulty Seeing? No Supposed To Wear Glasses Information not available 02/17/2024 What Is Your Level Of Caffeine Consumption? Occasional Soda Information not available 07/12/2025 How Much Tobacco Do You Chew? None Information not available 03/18/2020 In The 14 Days Before Symptom Onset, Have You Had Close Contact With A Laboratory-confi rmed COVID-19 While That Case Was Ill? No Information not available 03/18/2020 In The 14 Days Before Symptom Onset, Have You Had Close Contact With A Person Who Is Under Investigation For COVID-19 While That Person Was Ill? No Information not available 03/18/2020 Have You Been To An Area Known To Be High Risk For COVID-19? No Information not available 03/18/2020 Are You Deaf Or Do You Have Serious Difficulty Hearing? No [place] Rt Ear. [email or web address] Information not available 09/12/2021 What Type Of Diet Are You Following? REGULAR Information not available 05/07/2025 Which Illicit Or Recreational Drugs Have You Used? Denied Information not available 03/18/2020 Education 12 Information no t available 03/18/2020 What Is The Highest Grade Or Level Of School You Have Completed Or The Highest Degree You Have Received? [id number] [email or web address] Information not available 01/02/2021 Are There Any Guns Present In Your Home? No Information not available 03/18/2020 Hard Of Hearing Or Deaf In One Or Both Ears? Yes Hard Hearing Right Information not available 03/18/2020 Legally Blind In One Or Both Eyes? No Information not available 03/18/2020 Marital Status Informatio n not available 03/18/2020 What Was The Date Of Your Most Recent Tobacco Screening? 07/12/2025 Information not available 07/12/2025 How Many Children Do You Have? 1 Information not available 01/05/2025 What Is Your Relationship Status? [email or web address] Information not available 01/02/2021 Do You Use Your Seat Belt Or Car Seat Routinely? Yes [email or web address] Information not available 01/02/2021 Seat Belts Used Routinely Yes Information not available 03/18/2020 Are You Sexually Active? Yes Information not available 01/05/2025 Smoke Alarm In Home Yes Information not available 03/18/2020 Do You Have Smoke And Carbon Monoxide Detectors In Your Home? Yes [email or web address] Information not available 01/02/2021 At What Age Did You Start Smoking Tobacco? 18 Information not available 03/18/2020 Are You Passively Exposed To Smoke? No Information not available 01/05/2025 How Much Tobacco Do You Smoke? No Information not available 05/07/2025 General Stress Level Medium Information not available 03/18/2020 Do You Use Sunscreen Routinely? No Information not available 03/18/2020 Has Tobacco Cessation Counseling Been Provided? No [email or web address] Information not available 02/23/2025 On What Date Was Tobacco Cessation Counseling Provided? 07/12/2025 Information not available 07/12/2025 How Many Years Have You Smoked Tobacco? 11 Information not available 03/18/2020 Sex: Male Functional Status Question Answer Note LastModified by Organizat ion Details LastModified Time Do you use any illicit or recreational drugs? No [email or web address] Information not available 01/02/2021 Do you or have you ever used any other forms of tobacco or nicotine? No [email or web address] Information not available 01/02/2021 What is your level of alcohol consumption? None rarely Information not available 05/06/2020 Do you or have you ever used smokeless tobacco? Never used smokeless tobacco Information not available 03/18/2020 Are you currently employed? Yes [email or web address] Information not available 01/02/2021 Are you able to care for yourself independently? Yes [email or web address] Information not available 01/02/2021 What is your occupation? [employer] Information not available 03/18/2020 Do you or have you ever used e-cigarettes or vape? Never used electronic cigarettes Information not available 03/18/2020 What is your exercise level? None Information not available 07/28/2024 Mental Status Question Answer Note LastModified by Organization D etails LastModified Time Do you feel stressed (tense, restless, nervous, or anxious, or unable to sleep at night)? [id number] Information not available 11/29/2023 Family History Relationship Description Onset Age of this Age Resolved Age Notes LastModified by Organization Details LastModified Time Father Hypertensive disorder [email or web address] Not available 2019 14:04:19 Maternal Grandfather Coronary arterioscler osis 40 Not available 2024 09:16:34 Medical History Condition Response Coronary Artery Disease N Other N Atrial Fibrillation N High Blood Pressure Y Kidney or Bladder Problems N Thyroid Problems N GI Problems N Depression N COPD N Blood Clots N Skin Problems N Anemia N Heart Attack (MO) N Diabetes N Anxiety Disorder N Muscle, Joint, or Bone Problems N Seizures/Epilepsy N Acid Reflux (GERD) N Cancer N Stroke N Asthma N Allergies N High Cholesterol N Hepatitis N Liver Disease N Headaches N Osteoporosis N Heart Failure N Immunizations Vaccine Type Date Status Note Provider Nam e and Address Organization Details Recorded Time Td (adult) 06/01/2015 completed Adriana Gonzalez APN, FNP-C Attn: [address] [place], [address], [facility] 01/05/2025 09:04:47 MMR 07/02/1993 completed Adriana Gonzalez APN, FNP-C Attn: [address] [place], [address], [facility] 01/05/2025 09:05:12 MMR 07/06/1996 completed Adriana Gonzalez APN, FNP-C Attn: [address] [place], [address], [facility] 01/05/2025 09:05:12 Tdap 12/19/2007 completed Adriana Gonzalez APN [employer] Attn: [address] [place], [address], [facility] 01/05/2025 09:05:12 Tdap 01/05/2025 COLEEN Kendrick [facility], [facility] 01/05/2025 10:18:25 Past Encounters Encounter ID Performer Location Encounter Start Date Encounter Closed Date Diagnosis/Indication Diagnosis SNOMED-CT Code Diagnosis ICD10 Code Diagnosis IMO Codes Diagnosis Note [id number] MD Olivia Urrutia (Adult Med) [address] [place] [address] 03/18/2020 08:10:08 03/19/2020 11:59:33 Essential hypertension 40604484 I10 pt to continue amlodipine /metoprolo l Smoker 32753828 F17.200 Pain of le ft hip joint 2194664120 66806 M25.552 with h/o ligamental injury ( had mri in the past )pt had [id number] MD Olivia Urrutia (Adult Med) [address] [place] [address] 05/06/2020 08:45:57 05/07/2020 12:35:58 Essential hypertension 10500895 I10 pt to continue amlodipine /metoprolo l Pain of le ft hip joint 6691735171 09292 M25.552 with h/o ligamental injury ( had mri in the past )pt is seeing ortho who recommende d sx and needs to loose 100 lbs prior to sx per pt . [id number] Eri Olsen, [employer] [place] [address] [place] [address] 05/14/2020 14:08:02 05/15/2020 15:20:16 Suspected COVID-19 496094971 Z03.496 [id number] MD Olivia Urrutia (Adult Med) [address] [place] [address] 09/11/2020 08:03:09 09/12/2020 22:40:38 Essential hypertension 60064476 I10 pt to continue amlodipine /metoprolo l [id number] MD Lola Urrutiahalto (Adult Med) [address] [place] [address] 01/02/2021 08:06:05 01/03/2021 07:13:40 Essential hypertension 59303350 I10 pt to continue amlodipine /metoprolo l Headache 21599888 R51.9 possibly magrain BARRETT / pt needs to check his eye as well [id number] MD Olivia Urrutia (Adult Med) [address] [place] [address] 03/07/2021 11:24:59 03/10/2021 12:28:28 Essential hypertension 53479155 I10 pt to continue amlodipine /metoprolo l Obesity 730185936 E66.9 healthy diet and exercise discussed with pt Smoker 84383669 F17.200 Contact de rmatitis caused by urushiol from [place] poison khari 009112535 L25.5 pt to avoid contact with poison khari [id number] MD Olivia Urrutia (Adult Med) [address] [place] [address] 09/12/2021 11:15:53 09/15/2021 09:59:03 Pain of left hip joint 0056551029 03684 M25.552 with h/o ligamental injury ( had mri in the past )pt is seeing ortho who recommende d sx and needs to loose 100 lbs prior to sx per pt . Essential hypertension 20683294 I10 pt to continue amlodipine /metoprolo l Obesity 458780272 E66.9 healthy diet and exercise discussed with pt-discuss ed about glp1 -willing to try victoza [id number] MD Lola Urrutiahalto (Adult Med) [address] [place] [address] 07/24/2022 09:03:48 07/27/2022 15:51:21 Essential hypertension 27328706 I10 pt to continue amlodipine /metoprolo l Pain of le ft hip joint 4574562578 10781 M25.552 with h/o ligamental injury ( had mri in the past )pt is seeing ortho who recommende d sx and needs to loose 100 lbs prior to sx per pt . Morbid obesity 801080277 E66.01 healthy diet and exercise discussed with pt-pt declined wt loss med at this time Sleep apnea 73761442 G47 .30 -pt to see sleep medicine for sleep study [id number] MD Lola Urrutiahalto (Adult Med) [address] [place] [address] 11/20/2022 08:22:50 11/23/2022 10:37:26 Essential hypertension 08949105 I10 pt to continue amlodipine /metoprolo l Morbid obesity 964180942 E66.01 healthy diet and exercise discussed with pt-pt declined wt loss med at this time Smoker 19096319 F17.200 Injury of hand 420959768 S69.92XA Pain of le ft hip joint 7123455963 64612 M25.552 with h/o ligamental injury ( had mri in the past )pt is seeing ortho who recommende d sx and needs to loose 100 lbs prior to sx per pt . [id number] MD Olivia Urrutia (Adult Med) [address] [place] [address] 06/04/2023 08:09:41 06/08/2023 14:01:48 Essential hypertension 19515193 I10 pt to continue amlodipine /metoprolo l Morbid obesity 561710992 E66.01 healthy diet and exercise discussed with pt-pt declined wt loss med at this time Pain of le ft hip joint 8119861694 58556 M25.552 with h/o ligamental injury ( had mri in the past )pt is seeing ortho who recommende d sx and needs to loose 100 lbs prior to sx per pt . Calcaneal spur 85167499 M77.31 ice /shoe insert- seen in ER and xray showed heel spur Sleep apnea 85704083 G47 .30 -pt to see sleep medicine for sleep study [id number] MD Olivia Urrutia (Adult Med) [address] [place] [address] 11/29/2023 13:46:33 12/01/2023 12:47:38 Essential hypertension 36598234 I10 pt to continue amlodipine /metoprolo l Morbid obesity 187843235 E66.01 healthy diet and exercise discussed with pt-pt declined wt loss med at this time Enlarged tonsil 44408689 2 J35.1 - pt to see ENT [id number] MD Olivia Urrutia (Adult Med) [address] [place] [address] 02/17/2024 08:18:28 02/21/2024 08:30:16 Allergic contact dermatitis 037652862 L23.9 -pt to avoid exposure/n ails short to prevent scratching [id number] MD Olivia Urrutia (Adult Med) [address] [place] [address] 07/28/2024 08:32:10 07/31/2024 15:47:17 Essential hypertension 38312964 I10 pt to continue amlodipine /metoprolo l Enlarged tonsil 48145086 2 J35.1 -s/p sx [id number] MD Olivia Hannah (Adult Med) [address] [place] [address] 01/05/2025 08:44:02 01/09/2025 15:31:13 Adult health examination 020363213 Z00.01 Encouraged patient to eat well balanced meals, live active lifestyle and attend routine vision/den lucio apts. Essential hypertension 80793608 I10 currently on amlodipine and metoprolol , pulse today was 44 on intake, 48 apical on exampt reports early onset family hx of CVD, will refer to cardiology bradycardi a- dwp cut metoprolol in half; 25 mg bid, Ex-smoker 6112871 Z87.89 1 smoked about 15 years, half a pack a day, quit January 2023no longer smoker but his still smokes Morbid obesity 750305302 E66.01 advised mediterran jany/interm ittent fasting diet, regular exercise and weight reduction. Family his tory of premature coronary heart disease 990903675 Z82.49 grandfathe r was in his 40's when he ;pt prior sleep med referral prior to his tonsillect radha- does not think he has issues now since he had them out, may need new referral Administra tion of diphtheria, pertussis, and tetanus vaccine 225711498 Z23 Bradycardia 83023505 R00 .1 40's more often,poss ible side effect from beta jefferson, changing dose and referring to cardio Dyspnea 239949896 R06.00 linda ARREDONDO referring to cardio for work up and reducing beta jefferson dose [id number] Avel Michele MD [facility] [place] [address] [place] [address] 02/23/2025 08:23:10 02/27/2025 17:15:51 Essential hypertension 20849874 I10 19226 Dyspnea on exertion 6084 5006 R06.09 R94.31 R07.2 978993 Obese class III 61688065 5 E66.813 [id number] [id number] Avel Michele MD [facility] [place] [address] [place] [address] 03/15/2025 09:57:00 03/19/2025 10:44:58 Preoperative procedure 933101237 Z01.810 593446 Functional status greater than 8 METS. Normal LV function. No unstable arrhythmia s. Overall stress test findings are low risk. Based on revised ACC/AHA criteria, may proceed with planned low cardiac risk orthopedic risk surgery under choice anesthesia . Cardiovasc ular stress test abnormal 427102190 R94.39 887838 Discussed options for anatomic evaluation with CAD. Concern for false positive with coronary CTA given body habitus. NYHA class 1 with no symptoms at this juncture. We will continue medical management for now. We will start aspirin 81 mg daily after his surgery. Mixed hyperlipidemia 267 947591 E78.2 65557 In light of abnormal stress test, we will initiate atorvastat in 20 mg daily. Side effect profile discussed. Diet/exerc ise encouraged . Check follow-up CMP and lipid panel. Obese class III 21623852 5 E66.813 R06.83 7522685960 Given family member report of heavy snoring with exertional fatigue and morbid obesity, referred to sleep Medicine for evaluation for PHILL and likely initiation of treatment. Diet/exerc ise encouraged for weight management for cardiovasc ular risk reduction. [id number] MD Olivia Hannah (Adult Med) [address] [place] [address] 05/07/2025 08:36:50 05/09/2025 15:31:02 Essential hypertension 13017755 I10 currently on amlodipine and losartanpt reports early onset family hx of CVD,now sees cardiology Obese class III 59687126 5 E66.813 E66.3 0930777666 reviewed weight loss options with pt, diet/rx/medel rgeryadvis ed mediterran jany/interm ittent fasting diet, regular exercise and weight reduction. Advised patient to contact his insurance to find out if anything is covered,in structed call us once he knows what his options are Swelling 14743408 R22.9 0317083 TSA frequently flags groin area, pt has been searched several times, changed fabrics with no metal,conc erned that he has something there,tramaine sanchezwill order [place] [id number] Avel Michele MD [facility] [place] [address] [place] [address] 05/18/2025 09:55:25 05/21/2025 10:40:35 Essential hypertension 75481367 I10 97901 Amlodipine 10, losartan 50 daily. Will need low-sodium diet, ambulatory blood pressure monitoring and reaching out to care team if blood pressure numbers remain suboptimal (under 100/60, over 140/90) or if symptoms. Mixed hyperlipidemia 267 996520 E78.2 11706 Atorvastat in 20 daily. LDL 69, HDL 52 On 05/07/2025 . Based on findings of coronary CTA and calcium scoring may be able to wean statin. Dyspnea on exertion 6084 5006 R06.09 R94.39 Z82.49 [id number] With abnormal stress test, strong family history of premature CAD, hypertensi on, mixed hyperlipid emia, previous history of nicotine use and morbid obesity-di scussed options of anatomic evaluation for CAD. After shared decision-m santoshg we will refer to [facility] for coronary CTA. Continue aspirin 81 mg daily. Red flag symptoms discussed. Obese class III 00528815 5 E66.813 R06.83 [id number] ongoing efforts at diet/exerc ise reinforced . Refer again to sleep Medicine as patient has not been contacted by the sleep office. Referral placed and also printed for patient to contact the sleep Medicine office if does not hear from them in the next 3 business days. [id number] Debby Nino-Alyssa mcrae, MD [facility] (Adult Med) [address] [place] [address] 07/12/2025 08:15:08 07/16/2025 12:54:23 Essential hypertension 77278741 I10 currently on amlodipine and losartanpt reports early onset family hx of CVD,now sees cardiology - was started on metoprolol at ER but reports is not taking, advised pt to f/u with cardio as well Morbid obesity 527816450 E66.01 advised mediterran jany/interm ittent fasting diet, regular exercise and weight reduction. Obese class III 36397362 5 E66.813 [id number] reviewed weight loss options with pt, diet/rx/medel rgeryadvis ed mediterran jany/interm ittent fasting diet, regular exercise and weight reduction. Advised patient to contact his insurance to find out if anything is covered,in structed call us once he knows what his options are Prediabetes 285572233 R7 3.03 328825 5.7advisd diet changes Health Concerns Section Related Observation LastModified by Organization Detai ls LastModified Time None Recorded Concern Status LastModified by Organization Details LastModified Time None Recorded Advance Directives Directive N: Payers Insurance Date Sequence Insurance Name Policy Number Policy Francis Covered Member ID Francis Member ID Guarantor Name 03/15/2025 1 GLADYS Fili Varner [id number] Fili Varner 03/15/2025 1 [place] Fili Varner [id number] Filidony Varner 09/30/2025 1 [place] [id number] Fili Varner [id number] Fili Varner 05/14/2020 3 *SELF PAY* Fabiano Geronimo 03/15/2025 1 [place] [id number] Fili Varner [id number] Fili Varner 03/15/2025 2 [place]MENT [place] AID Fili Varner [id number] Fili Varner 03/15/2025 1 [facility] - DOS PRIOR TO 2021 (MEDICAID REPLACEMENT - HMO) Filidony Varner [id number] Fili Varner Notes Date Note Type Note Provider Name and Address Organization Details Recorded Time 02/23/2025 text/html ROS as noted in the HPI I had the pleasure of seeing this patient as a new consultation from Ms. Adriana Gonzalez NP for recommendations regarding evaluation and management of Cardiac etiology of dyspnea and bradycardia. HPI:Reports NYHA class 2 dyspnea with activity which improved with rest. Self-limited episodes of left-sided chest pain which was substernal, pressure-like, lasting for a few sec and no definite exertional component. Not sure of having had COVID but close exposure to spouse who had COVID. No palpitations, presyncope or syncope. Reports exertional fatigue. Relevant cardiac labs from 01/05/2025 reviewed which show HGB A1c 5.7, LDL 108. Otherwise unremarkable CMP, thyroid studies and CBC. Cardiac history/risk factors:Hypertension diagnosed at approximately 25Morbid obesityPrevious history of suspected PHILL with symptoms improved following tonsillectomyFamily history of premature CAD with maternal grandfather having MO in 40s and maternal uncle having had MO in his early 30sHistory of nicotine dependence, quit at the age of 32, approximately 20 pack year smoking history Cardiac diagnostics:Twelve lead EKG 02/23/2025: Sinus bradycardia, ST-T changes in the lateral leads suggestive of repolarization Avel Michele MD Attn: [address] [place], [address], [facility] 02/23/2025 09:07:35 03/15/2025 text/html ROS as noted in the HPI HPI:Symptoms of dyspnea improved after blood pressure control. No chest pain or pressure. 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 Plans to undergo wrist surgery. Cardiac history/risk factors:Hypertension diagnosed at approximately 25Morbid obesityPrevious history of suspected PHILL with symptoms improved following tonsillectomyFamily history of premature CAD with maternal grandfather having MO in 40s and maternal uncle having had MO in his early 30sHistory of nicotine dependence, quit at the age of 32, approximately 20 pack year smoking history Cardiac diagnostics:Twelve lead EKG 02/23/2025: Sinus bradycardia, ST-T changes in the lateral leads suggestive of repolarization Transthoracic echocardiogram 03/09/2025: LVEF greater than 75%, grade 1 diastolic dysfunction, normal RV function, collapsed IVC Treadmill Myoview: Technically difficult study due to body habitus. Medium-size basal infarct with mild anastasia-infarct ischemia, small fixed lateral defect consistent with artifact, LVEF 57, normal TID. No chest pain at 6 minutes 40 seconds, 8 Mets on the Uday protocol with 96% age predicted maximum heart rate and peak blood pressure 212/ 81 mmHg[address] depressions which lasted 1-2 minutes into recovery. Avel Michele MD Attn: [address] [place], [address], [facility] 03/15/2025 11:38:07 05/07/2025 text/html Patient here to discuss weight loss options Patient is also having difficulty when going through [place]SA at the airport, has been flagged numerous times, scans continually show lit up at groin area.has changed fabrics of his clothing with no metal and is still getting flagged,denies pain, denies lumps, denies any discharge. Adriana Gonzalez APN, [employer]ING [employer] SUPER[employer]-C Attn: [address] [place], [address], [facility] 05/07/2025 14:28:19 05/18/2025 text/html ROS as noted in the HPI HPI:mild exertional dyspnea. NYHA class 2. No chest pain or pressure. Blood pressure optimal. No palpitations, presyncope or syncope. Cough secondary to allergies which is improving with OTC allergy medications recommended by PCP Cardiac history/risk factors:Hypertension diagnosed at approximately 25Morbid obesityPrevious history of suspected PHILL with symptoms improved following tonsillectomyFamily history of premature CAD with maternal grandfather having MO in 40s and maternal uncle having had MO in his early 30sHistory of nicotine dependence, quit at the age of 32, approximately 20 pack year smoking history Cardiac diagnostics:Twelve lead EKG 02/23/2025: Sinus bradycardia, ST-T changes in the lateral leads suggestive of repolarization Transthoracic echocardiogram 03/09/2025: LVEF greater than 75%, grade 1 diastolic dysfunction, normal RV function, collapsed IVC Treadmill Myoview: Technically difficult study due to body habitus. Medium-size basal infarct with mild anastasia-infarct ischemia, small fixed lateral defect consistent with artifact, LVEF 57, normal TID. No chest pain at 6 minutes 40 seconds, 8 Mets on the Uday protocol with 96% age predicted maximum heart rate and peak blood pressure 212/ 81 mmHg[address] depressions which lasted 1-2 minutes into recovery. Avel Michele MD Attn: [address] [place], [address], [facility] 05/18/2025 10:21:21 07/12/2025 text/html here for follow upwent to ER on 06/30 for dizziness, high bp and high pulse. ER prescribed metoprolol to take.is seeing Dr Michele as well Adriana Gonzalez APN, [employer]ING [employer]PER[employer]-C Attn: [address] [place], [address], [facility] 07/12/2025 08:58:52
--- OUTSIDE RECORDS SUMMARY | 2025-10-12 21:36 | XMS_ITS | Clinical Summary ---
Author Organization [facility] Address [address] [address] Phone Care Team Providers Care Ticket Sorter Name Role Phone Claudy Sanchez MD Primary Care Provider [phone] Allergies No known active allergies Medications amLODIPine [...] Active Problems Problem Noted Date Diagnosed Date [facility] or callus 05/17/2018 Hallux limitus of left [...] Comments Blood Pressure 175/98 10/18/2023 3:50 PM SADDLE MECHANIC Pulse 80 10/18/2023 12:28 PM SADDLE MECHANIC Temperature 36.7 C (98.1 F) 10/18/2023 12:28 PM SADDLE MECHANIC Respiratory Rate 16 10/18/2023 3:50 PM SADDLE MECHANIC Oxygen Saturation 99% 10/18/2023 3:50 PM SADDLE MECHANIC Inhaled Oxygen Concentration - - Weight 154.2 kg (340 lb) 10/18/2023 12:28 PM SADDLE MECHANIC Height 193 cm (6' 4) 10/18/2023 12:28 PM SADDLE MECHANIC Body Mass Index 41.39 10/18/2023 12:28 PM SADDLE MECHANIC Plan of Treatment Health Maintenance Due Date Last Done Comments Hepatitis C Virus (HCV) Screening 1992 TdaP Immunization 1992 Varicella Immunization (1 of 2 - 13+ 2-dose series) 2005 Hepatitis B Immunization (1 of 3 - 19+ 3-dose series) 2011 Influenza Immunization (#1) 2025 SARS-COV-2 Immunization ( - season) 2025 Respiratory Syncytial Virus (RSV) Immunization (Adult) (1 - 1-dose 75+ series) 2067 DTaP/Tdap/Td Immunization Discontinued 06/01/2015 Human Papillomavirus (HPV) Immunization (No Doses Required) Completed Meningococcal Immunization (ACWY) Aged Out No longer eligible based on patient's age to complete this topic Pneumococcal Immunization Combined Aged Out No longer eligible based on patient's age to complete this topic Rotavirus Immunization Aged Out No lo nger eligible based on patient's age to complete this topic Insurance [employer] ASA Care Teams Ticket Sorter Relationship Specialty Start Date End Date Claudy Sanchez MD [address] [place] [address] PCP - General Internal Medicine 04/01/20
[2025-10-12] MEDS: ACETAMINOPHEN 500 MG TABLET 1000 MG PO (21:41)
[2025-10-12 22:55] LABS: Add Urine Microscopic? YES; Appearance Urine Clear (Clear); Glucose Urine UA Negative (Negative); Leukocyte Esterase Ur Negative LEU/UL (Negative); Nitrate Urine Negative (Negative); Non Pathogenic Casts 0-2; Specific Grav Ur > 1.045 (1.001-1.035)
== END 2025-10-12 23:18 | disposition home or self-care (01) ==
PROVIDERS: Emergency Medicine; Registered Nurse; Emergency Provider Physician Assistant; PCP Nurse Practitioner Family
DX: R10.11 Right upper quadrant pain (principal); I10 Essential (primary) hypertension; M19.90 Unspecified osteoarthritis, unspecified site; Z87.891 Personal history of nicotine dependence; Q63.1 Lobulated, fused and horseshoe kidney
CPT/HCPCS: 36415; 74177; 80053; 81001; 83605; 83690; 84484; 85025; 99284; A9270; Q9967